=== PATIENT | female | born 1960 | race Caucasian/White ===

== ENCOUNTER 2016-11-10 14:34 | Emergency (ER) | payer BC, MEDICARE ==
[~2016-11-10] VITALS: Ht 170.2 cm; Wt 70.4 kg
[~2016-11-10 14:34] MED LIST: AMIT50TA3 PO; ASPI-557 PO; CETI-115 PO; CHOL200035 PO; CYCL-375 PO; FERR324T PO; FLUO20CA30 PO; FLUO40CA7 PO; FLUT15.88 NS; GABA-336 PO; LEVO75TA57 PO; METF500T4 PO; METO50TA5 PO; MULT-806 PO; OMEP40CA30 PO; PHEN-742 PO; POTA-12 PO; PRAM0.5T12 PO; SIMV20TA6 PO; SUMA100T18 PO; TOPI100T27 PO; TRAZ-173 PO
[2016-11-10 14:35] VITALS: Ht 170.2 cm; Wt 70.4 kg
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
--- OUTSIDE RECORDS SUMMARY | 2016-11-10 14:37 | XMS REPORT | Continuity of Care Document ---
Author Author [facility] Organization [facility] Address Unknown Phone Unavailable Support Name Relationship Address Phone PATRICIO KENNEDY MD Caregiver [address] [place] [id number] BLAISE VILLALTA MD Caregiver [address] [place] [address] [place] [id number] HUDSON HUTCHINS Next Of Kin [address] [place] [id number] Insurance Providers Payer Name Policy Number Subscriber Name Relationship [employer] Ppo/Open Choice [id number] DannyAlonzo Spouse Advance Directives Directive Response Recorded Date/Time Advanced Directives Type None 12/26/13 9:29pm Ordered Resuscitation Status Full Code 12/27/13 11:32am Problems Medical Problems Problem Onset Date Status Pyelonephritis Unknown Active UTI (urinary tract infection) Unknown Active CAP (community acquired pneumonia) Unknown Active History of DVT of lower extremity Unknown Active Hx of migraine with aura Unknown Active History of PSVT (paroxysmal supraventricular tachycardia) Unknown Active GERD (gastroesophageal reflux disease) Unknown Active Dyslipidemia Unknown Active Chronic low back pain Unknown Active Neurogenic bladder Unknown Active Obesity (BMI 30.0-34.9) Unknown Active Shock liver Unknown Active Acute kidney injury Unknown Resolved Sepsis Unknown Active Hypothyroidism Unknown Active Depression Unknown Active Nausea & vomiting Unknown Active Painful total knee replacement 02/11/2014 Active Cellulitis Unknown Active Cellulitis Unknown Active Bandemia Unknown Active UTI (urinary tract infection) Unknown Active Surgical Problems Problem Onset Date Recorded Date/Time Status S/P knee replacement Unknown 02/08/2014 5:46pm Active Medications Medication Dose Route Sig Days/Qty Instructions Order Date Discontinued Date Status [Kenalog Cream] 06/04/08 07/19/11 Discontinued Alprazolam 0.25 Mg PO THREE TIMES A DAY 09/01/08 12/31/11 Discontinued Aspirin 325 Mg PO DAILY 09/01/08 01/08/12 Discontinued Celecoxib 400 Mg PO DAILY 09/01/08 07/19/11 Discontinued Calcium Citrate/Vitamin D3 1 Tab PO THREE TIMES A DAY 06/04/0807/19 Discontinued Rosuvastatin Calcium 10 Mg PO DAILY 06/04/08 07/19/11 Discontinued [estrogen pellets] 50 Mg ID every 6 month 06/04/08 11/26/11 Discontinued Triamcinolone Acetonide 0.1 G TP .1% bid 06/04/08 07/19/11 Discontinued Levothyroxine Sodium 25 Mcg PO DAILY 09/01/08 07/19/11 Discontinued Escitalopram Oxalate 10 Mg PO DAILY 06/04/08 06/04/08 Discontinued Multivitamins 1 Tab PO DAILY 06/04/08 02/28/12 Discontinued Levothyroxine Sodium 25 Mcg PO DAILY 06/04/08 06/04/08 Discontinued Escitalopram Oxalate 10 Mg PO DAILY 09/01/08 07/19/11 Discontinued Fish Oil/Hammond-3 Fatty Acids 2 Cap PO TWICE A DAY 06/04/08 01/08/12 Discontinued Topiramate 100 Mg PO BID PRN 06/04/08 Active Amitriptyline Hcl 3 Tab PO BEDTIME 09/05/08 12/31/11 Discontinued Verapamil Hcl 0.5 Tab PO TWICE A DAY 09/05/08 12/31/11 Discontinued Indomethacin 1 Cap PO THREE TIMES A DAY 09/05/08 07/19/11 Discontinued Hydrocodone Bit/Acetaminophen 1 Tab PO EVERY 4 HOURS PRN 09/05/08 Discontinued Gabapentin 1 Tab PO THREE TIMES A DAY 09/05/08 07/19/11 Discontinued Omeprazole 1 Cap PO TWICE A DAY 09/05/08 07/19/11 Discontinued Levothyroxine Sodium 50 Mcg PO DAILY 07/19/11 02/28/12 Discontinued Fluticasone Propionate 16 Gm NS DAILY 07/19/11 11/26/11 Discontinued Propranolol Hcl 120 Mg PO BEDTIME 07/19/11 02/28/12 Discontinued Triamterene/Hydrochlorothiazid 1 Udtab PO DAILY 07/19/11 02/28/12 Discontinued Metformin Hcl 500 Mg PO TWICE A DAY 07/19/11 02/28/12 Discontinued Pravastatin Sodium 20 Mg PO BEDTIME 07/19/11 11/26/11 Discontinued Fluoxetine Hcl 60 Mg PO DAILY 07/19/11 12/22/12 Discontinued Oxycodone Hcl/Acetaminophen 1 Tab PO PRN 12/31/11 02/28/12 Discontinued [elavil] 10 Mg PO BEDTIME 12/31/11 02/28/12 Discontinued Pravastatin Sodium 20 Mg PO BEDTIME 12/31/11 09/09/12 Discontinued Fluoride Ion/Multivitamins 1 Mg PO 12/31/11 02/28/12 Discontinued Fish Oil/Hammond-3 Fatty Acids 2 Cap PO TWICE A DAY 01/08/12 02/28/12 Discontinued Levothyroxine Sodium 75 Mcg PO DAILY 02/28/12 Active Folic Acid/Mv,Fe,Other Min 1 Each PO DAILY 02/28/12 12/22/12 Discontinued Cholecalciferol (Vitamin D3) 2,000 Unit PO DAILY 02/28/12 Active Docusate Sodium 100 Mg PO DAILY 02/28/12 09/09/12 Discontinued Verapamil Hcl 120 Mg PO TWICE A DAY 09/09/12 12/22/12 Discontinued Cyclobenzaprine Hcl 20 Mg PO BEDTIME 09/09/12 11/27/13 Discontinued Butalb/Acetaminophen/Caffeine 1 Tab PO NEEDED 11/06/12 12/22/12 Discontinued Fluticasone Propionate 1 [place] NS NEEDED 11/06/12 Active Pramipexole Di-Hcl 0.5 Mg PO BEDTIME 11/06/12 Active Multivitamins 1 Tab PO DAILY 12/22/12 Active Fluoxetine Hcl 60 Mg PO DAILY 12/22/12 Active Warfarin Sodium 5 Mg PO DAILY 11/19/13 10/24/14 Discontinued Omeprazole 40 Mg PO BEFORE BREAKFAST 11/19/13 Active Cyclobenzaprine Hcl 10 Mg PO DAILY 11/27/13 02/08/14 Discontinued Fluconazole 100 Mg PO DAILY 5 Qty 02/03/14 02/08/14 Discontinued Nitrofurantoin/Nitrofuran Mac 100 Mg PO DAILY 90 Qty 02/05/14 Discontinued Spironolactone 25 Mg PO DAILY 02/08/14 10/24/14 Discontinued Sennosides/Docusate Sodium 1 Tab PO TWICE A DAY 02/08/14 Active Furosemide 40 Mg PO TWICE A DAY 02/08/14 Active Metoprolol Tartrate 25 Mg PO TWICE A DAY 2 Qty 02/08/14 10/24/14 Discontinued Polyethylene Glycol 3350 17 Gm PO NEEDED 02/08/14 Active Magnesium Hydroxide Unknown Dose PO DAILY 02/08/14 10/24/14 Discontinued Potassium Chloride 20 Meq PO THREE TIMES A DAY 02/08/14 Active Sumatriptan Succ/Naproxen Sod 1 Each PO NEEDED PRN MIGRAINE HEADACHE 02/08/14 Active Docusate Sodium 100 Mg PO TWICE A DAY 60 Qty 02/11/14 10/24/14 Discontinued Oxycodone Hcl 10 Mg PO EVERY 12 HOURS 28 Qty 02/11/14 10/24/14 Discontinued Oxycodone Hcl 5-15 Mg PO Every 3 Hours PRN BREAKTHROUGH PAIN 60 Qty 10/2310/24/14 Discontinued Clindamycin HCl 1 Cap PO FOUR TIMES DAILY 7 Days TAKE WITH A FULL GLASS OF WATER TO AVOID ESOPHAGEAL 08/06/14 10/24/14 Discontinued Tramadol HCl 50 Mg PO Every 6 Hours PRN PAIN 20 Qty 08/06/14 10/24/14 Discontinued Cranberry Extract 1 Tab PO DAILY 10/24/14 Active Metoprolol Tartrate 25 Mg PO BEDTIME 10/24/14 Active Metoprolol Tartrate 50 Mg PO GIVE WITH BREAKFAST Take 1 tablet, by mouth , one time a day (with breakfast). 10/24/14 Active Warfarin Sodium 3 Mg PO SAT/Sat10/24/14 Active Warfarin Sodium 6 Mg PO 5 TIMES A WEEK Take by mouth, 1 time a day (at 5 pm). 10/24/14 Active Melatonin/Pyridoxine HCl (B6) 1-2 Tab PO BEDTIME 10/24/14 Active Metformin HCl 1 Tab PO TWICE DAILY WITH MEALS Take one tablet, by mouth , twice daily with meals 10/24/14 Active Phentermine HCl 1 Tab PO DAILY 10/24/14 Active Simvastatin 20 Mg PO BEDTIME 10/24/14 Active Hydrocodone/Acetaminophen 1-2 Tab PO q4-6 30 Qty 10/24/14 Active Phenazopyridine HCl 200 Mg PO Every 8 Hours 3 Days Take 1 tab, by mouth, 3 times a day AFTER meals. 10/24/14 Active Amoxicillin/Potassium Clav 1 Tab PO TWICE A DAY 10 Days 10/24/14 Active Social History Social History Problem Response Recorded Date/Time Chewing Tobacco Status No 02/08/2014 9:12am Hx Substance Use No 10/24/2014 2:46pm Hx Alcohol Use No 10/24/2014 2:46pm Has the pt used tobacco in the last 12 months No 05/04/2014 10:59am Tobacco Usage none 02/08/2014 5:50pm Query Response Start Date Stop Date Smoking Status Never smoker Hospital Discharge Instructions No hospital discharge instructions. Plan of Care No plan of care. Functional Status Query Response Date Recorded Physical Hygiene Self October 24, 2014 2:46pm Disabilities Visual February 11, 2014 1:06pm Devices Used Glasses October 24, 2014 2:46pm Dressing Self October 24, 2014 2:46pm Ambulation Self February 11, 2014 1:06pm Diet Self October 24, 2014 2:46pm Mental Status Alert Oriented February 11, 2014 1:06pm Disabilities Visual February 11, 2014 1:06pm Devices Used Glasses October 24, 2014 2:46pm Physical Hygiene Self October 24, 2014 2:46pm Dressing Self October 24, 2014 2:46pm Ambulation Self February 11, 2014 1:06pm Diet Self October 24, 2014 2:46pm Allergies, Adverse Reactions, Alerts Allergen Type Severity Reaction Status Last Updated Sulfa (Sulfonamide Antibiotics) Allergy Unknown RASH Active 10/24/14 Acetaminophen Adverse Reaction Unknown NEEDS TO WATCH R/T ELEVATED LIVER ENZYMES Active 10/24/14 Prednisone Allergy Unknown MENTAL STATUS CHANGES Active 10/24/14 Ciprofloxacin Allergy Mild ITCH Active 10/24/14 PLASTIC TAPE Allergy Unknown RASH/SKIN TEARS Active 05/04/14 Immunizations Name Given Type Hx Influenza Vaccination Y 04/2014 Historical Hx Pneumococcal Vaccination Y JANUARY 2013 Historical Hx Tetanus, Diptheria, Pertussis Y 5 years Historical Hx Influenza Vaccination Y 04/2014 Historical Hx Tetanus, Diptheria, Pertussis Y 5 years Historical Vital Signs Acute Vital Signs Vital Response Date/Time Temperature (Fahrenheit) 98.6 deg F (96.8 - 99.1) Temperature (Calculated Celsius) 37.83731 degrees C (36.0 - 37.3) Pulse Rate (adult) 99 bpm (60 - 100) Respiratory Rate 18 breaths/min (10 - 20) O2 Sat by Pulse Oximetry 100 % (90 - 100) Blood Pressure 99/55 mm Hg Height 5 ft 7 in Weight 192 lb Body Mass Index 30.0 kg/m^2 Results Test Source Date Result Interp. Ref. Range Comments Alanine Aminotransferase (ALT/SGPT) October 24, 2014 3:45pm 44 U/L N 9-52 Albumin October 24, 2014 3:45pm 3.8 G/DL N 3.5-5.0 Albumin/Globulin Ratio October 24, 2014 3:45pm 1.5 RATIO N 1.1-2.2 Alkaline Phosphatase October 24, 2014 3:45pm 88 U/L N 38-126 Amylase Level October 24, 2014 3:45pm 65 U/L N 30-110 Anion Gap October 24, 2014 3:45pm 11 MEQ/L N 5-15 Aspartate Amino Transf (AST/SGOT) October 24, 2014 3:45pm 30 U/L N 14-36 BUN/Creatinine Ratio October 24, 2014 3:45pm 23 RATIO N 6-26 Band Neutrophils # October 24, 2014 3:45pm 1.7 T/MM3 - Band Neutrophils % October 24, 2014 3:45pm 19.0 % DH 0-6 Basophils # (Auto) May 05, 2014 6:25am 0.1 T/MM3 N 0-0.2 COMMENT NSC WILL CALL Basophils (%) (Auto) May 05, 2014 6:25am 1.4 % N 0-2 COMMENT NSC WILL CALL Blood Urea Nitrogen October 24, 2014 3:45pm 25.0 MG/DL H 7-17 C-Reactive Protein May 21, 2012 2:56pm < 5.0 MG/L 0-9 Calcium Level October 24, 2014 3:45pm 9.3 MG/DL N 8.4-10.2 Calculated Osmolality October 24, 2014 3:45pm 272 MOSM/KG N 261-280 Carbon Dioxide Level October 24, 2014 3:45pm 27 MEQ/L N 22-30 Chemistry Specimen Hemolysis October 24, 2014 3:45pm < 15 0-25 0-25: No Hemolysis.26-70: Slight Hemolysis - can falsely elevate K and Urine Protein. 71-285: Moderate Hemolysis - can falsely elevate K, Troponin I, CA 19-9, PTH, CSF GLucose, and Urine Protein, and can falsely decrease Phenytoin. 286-999: Gross Hemolysis - can falsely elevate K, Troponin I, CA 19-9, PTH, CSF Glucose, and Urine Protine, and can falsely decrease Phenytoin. Recommend specimen recollection. Chloride Level October 24, 2014 3:45pm 101 MEQ/L N 98-107 Cholesterol Level January 13, 2013 5:50am 263 MG/DL H 132-199 COMMENT run on this am hilda Cholesterol/HDL Ratio January 13, 2013 5:50am 4.3 RATIO H 0-4.0 COMMENT run on this am hilda Conjugated Bilirubin September 09, 2012 4:45pm 0.00 MG/DL N 0.00-0.30 Creatinine October 24, 2014 3:45pm 1.1 MG/DL N 0.7-1.2 D-Dimer September 09, 2012 4:44pm 574 NG/ML H 0-230 <224 NG/ML= PRESUMPTIVE NEGATIVE FOR PE OR DVT>224 NG/ML=ADDITIONAL EVALUATION FOR PE OR DVT RECOMMENDED Differential Total Cells Counted September 01, 2008 4:20pm 100 % - Eosinophils # (Auto) May 05, 2014 6:25am 0.2 T/MM3 N 0-0.5 COMMENT NSC WILL CALL Eosinophils (%) (Auto) May 05, 2014 6:25am 3.4 % N 0-4 COMMENT NSC WILL CALL Erythrocyte Sedimentation Rate September 09, 2012 4:44pm 2 MM/HR N 0-20 Are you ordering this test to rule out VTE Yes Free Thyroxine January 14, 2013 4:50am 0.99 NG/DL N 0.78-2.19 COMMENT blood in lab Globulin October 24, 2014 3:45pm 2.6 G/DL N 2.4-3.6 Glomerular Filtration Rate Calc October 24, 2014 3:45pm 52 - Glucometer November 06, 2012 8:33am 115 mg/dL H 65-110 Glucose Level October 24, 2014 3:45pm 93 MG/DL N 65-110 HDL Cholesterol Direct January 13, 2013 5:50am 61 MG/DL H 40-60 COMMENT run on this am hilda Hematocrit October 24, 2014 3:45pm 37.1 % N 36-46 Hemoglobin October 24, 2014 3:45pm 12.3 GM/DL N 12-16 Icterus Index October 24, 2014 3:45pm < 2 0-7 Immature Granulocyte # (Auto) May 05, 2014 6:25am 0.01 T/MM3 N 0.00-0.03 COMMENT NSC WILL CALL Immature Granulocyte % (Auto) May 05, 2014 6:25am 0.2 % N 0.0-0.5 COMMENT NSC WILL CALL Influenza Virus Types A,B Antigen September 01, 2008 4:20pm Negative - LDL Cholesterol, Calculated January 13, 2013 5:50am 176.2 H 66-159 COMMENT run on this am hilda Lab Scanned Report February 01, 2014 8:11pm LAB TEST FORM REQUEST [id number] - Lipase October 24, 2014 3:45pm 90 U/L N 23-300 Lymphocytes # (Auto) May 05, 2014 6:25am 2.3 T/MM3 N 1-4.8 COMMENT NSC WILL CALL Lymphocytes # (Manual) October 24, 2014 3:45pm 0.3 T/MM3 L 1-4.8 Lymphocytes % (Manual) October 24, 2014 3:45pm 3.0 % L 23-45 Lymphocytes (%) (Auto) May 05, 2014 6:25am 36.2 % N 23-45 COMMENT NSC WILL CALL MRSA Specimen Source February 01, 2014 1:27pm Nasal - Magnesium Level September 09, 2012 4:45pm 2.1 MG/DL N 1.6-2.3 Mean Corpuscular Hemoglobin October 24, 2014 3:45pm 30.0 UUG N 26-34 Mean Corpuscular Hemoglobin Concent October 24, 2014 3:45pm 33.2 GM/DL N 31-37 Mean Corpuscular Volume October 24, 2014 3:45pm 90.5 UM3 N 80-100 Mean Platelet Volume October 24, 2014 3:45pm 8.7 UM3 L 9.4-12.4 Methicillin-Resist S.aureus DNA PCR February 01, 2014 1:27pm Negative - Monocytes # (Auto) May 05, 2014 6:25am 0.5 T/MM3 N 0-0.8 COMMENT NSC WILL CALL Monocytes # (Manual) October 24, 2014 3:45pm 0.1 T/MM3 N 0-0.8 Monocytes % (Manual) October 24, 2014 3:45pm 1.0 % N 0-9.0 Monocytes (%) (Auto) May 05, 2014 6:25am 7.8 % N 0-9.0 COMMENT NSC WILL CALL Neutrophils # (Auto) May 05, 2014 6:25am 3.2 T/MM3 N 1.8-7.7 COMMENT NSC WILL CALL Neutrophils # (Manual) October 24, 2014 3:45pm 6.8 T/MM3 N 1.8-7.7 Neutrophils % (Manual) October 24, 2014 3:45pm 77.0 % H 33-66 Neutrophils (%) (Auto) May 05, 2014 6:25am 51.0 % N 33-66 COMMENT NSC WILL CALL Phosphorus Level February 04, 2012 5:10am 4.1 MG/DL N 2.5-4.5 Platelet Count October 24, 2014 3:45pm 234 T/MM3 N 130-400 Potassium Level October 24, 2014 3:45pm 4.3 MEQ/L N 3.6-5 Prealbumin December 26, 2013 8:01pm 31.3 MG/DL N 17.6-36.0 COMMENT may use blood in labCOMMENT may use blood in lab Procalcitonin December 26, 2013 10:20pm 0.09 NG/ML - PCT </=0.5 ng/mL - sepsis not likely;PCT >0.5 and </=2 ng/mL - sepsis possible; PCT >2 ng/mL - sepsis likely; PCT >/=10 ng/mL - systemic inflammatory response - sepsis or septic shock highly indicated. Prothromb Time International Ratio October 24, 2014 3:45pm 1.55 H 0.81- 1.09 THERAPUTIC RANGE=2.00-3.00 FOR ANTI-THROMBOSIS THERAPUTIC RANGE=2.50- 3.50 FOR IMPLANTED VALVE RDW Standard Deviation October 24, 2014 3:45pm 43.1 FL N 36.9-50.2 Red Blood Count October 24, 2014 3:45pm 4.10 M/MM3 N 4.00-5.20 Red Cell Morphology Comment October 24, 2014 3:45pm Normal - Sodium Level October 24, 2014 3:45pm 139 MEQ/L N 134-144 Tests Not Done September 02, 2008 4:25am Not done - Has specimen been collected/obtained? Y Thyroid Stimulating Hormone (TSH) December 26, 2013 8:01pm 4.13 MIU/L N 0.47- 4.68 COMMENT may use blood in labCOMMENT may use blood in lab Total Bilirubin October 24, 2014 3:45pm 0.60 MG/DL N 0.20-1.30 Total Protein October 24, 2014 3:45pm 6.4 G/DL N 6.3-8.2 Triglycerides Level January 13, 2013 5:50am 129 MG/DL N 35-135 COMMENT run on this am hilda Troponin I September 09, 2012 4:45pm < 0.012 ng/ml 0-0.12 Turbidity October 24, 2014 3:45pm < 20 0-20 Unconjugated Bilirubin September 09, 2012 4:45pm 0.00 MG/DL N 0.00-1.10 Urinalysis Comment February 09, 2014 5:45am Microscopic not ind. - COMMENT C&S IF WBC GREATER THAN 10 AND BACTERIA 1 PLUS OR MORE Has specimen been collected/obtained? Y Urine Bacteria October 24, 2014 3:15pm 1+ H - Has specimen been collected /obtained? Y Urine Bilirubin October 24, 2014 3:15pm Negative - Has specimen been collected/obtained? Y Urine Blood October 24, 2014 3:15pm Trace-intact H - Has specimen been collected/obtained? Y Urine Collection Type October 24, 2014 3:15pm Straight cath - Has specimen been collected/obtained? Y Urine Color October 24, 2014 3:15pm Yellow - Has specimen been collected/obtained? Y Urine Culture Indicated October 24, 2014 3:15pm Cult reflexed &setup - Has specimen been collected/obtained? Y Urine Eosinophils February 03, 2012 8:10pm Ref lab rpt scanned - --- 06/08 0754 ---EOSINU previously reported as: SEND OUT Urine Glucose (UA) October 24, 2014 3:15pm Negative - Has specimen been collected/obtained? Y Urine Ketones October 24, 2014 3:15pm Negative - Has specimen been collected/obtained? Y Urine Leukocyte Esterase October 24, 2014 3:15pm Trace H - Has specimen been collected/obtained? Y Urine Microscopic Not Indicated February 03, 2012 8:10pm Not indicated - Has specimen been collected/obtained? Y Urine Nitrite October 24, 2014 3:15pm Positive H - Has specimen been collected/obtained? Y Urine Protein October 24, 2014 3:15pm Negative - Has specimen been collected/obtained? Y Urine RBC October 24, 2014 3:15pm 1-3 /HPF - Has specimen been collected/obtained? Y Urine Specific [place] October 24, 2014 3:15pm 1.010 L - Has specimen been collected/obtained? Y Urine Squamous Epithelial Cells December 26, 2013 4:45pm 0-5 - Has specimen been collected/obtained? Y Urine Transitional Epithelial Cells September 09, 2012 5:15pm 5-10 /HPF - Has specimen been collected/obtained? Y Urine Turbidity October 24, 2014 3:15pm Clear - Has specimen been collected/obtained? Y Urine Urobilinogen October 24, 2014 3:15pm 0.2 EU/DL - Has specimen been collected/obtained? Y Urine WBC October 24, 2014 3:15pm 3-5 /HPF - Has specimen been collected/obtained? Y Urine pH October 24, 2014 3:15pm 7.0 - Has specimen been collected/ obtained? Y VLDL Cholesterol January 13, 2013 5:50am 25.8 MG/DL N 0-28 COMMENT run on this am hilda Valproic Acid (Depakene) Level February 03, 2012 7:49pm < 10.0 UG/ML L 50- 120 Venous Blood Lactate December 26, 2013 10:20pm 1.1 MMOL/L N 0.6-2.2 Vitamin B12 Level December 26, 2013 8:01pm 670 PG/ML N 239-931 COMMENT may use blood in labCOMMENT may use blood in lab White Blood Count October 24, 2014 3:45pm 8.8 T/MM3 N 4.5-11.0 Blood Culture Blood December 26, 2013 10:20pm NO GROWTH AFTER 5 DAYS Gram Stain Synovial Fluid-Right Knee January 09, 2012 1:45pm Gram Stain Sputum-Expectorated Sputum December 29, 2013 4:30am Gram Stain Knee, Intraoperative Site-Left January 13, 2013 7:55am Urine Culture Urine, Clean Catch-Midstream December 26, 2013 5:30pm Gram Stain Knee, Non-Surgical Site-Left February 27, 2013 10:00am Procedures Procedure Status Date Provider(s) THER/PROPH/DIAG INJ SC/IM completed 08/06/14 EMERGENCY DEPT VISIT completed 08/06/14 [id number]"INJECTION, CEFTRIAXONE SODIUM, PER 250 MG" completed 08/06/14 Encounters Encounter Location Date/Time Departed Emergency Room [facility] 10/24/14 2:11pm Departed Emergency Room [facility] 08/06/14 9:46am Recent Diagnosis
--- OUTSIDE RECORDS SUMMARY | 2016-11-10 14:38 | XMS REPORT | Continuity of Care Document ---
Author Author [facility] Organization [facility] Address Unknown Phone Unavailable Allergies Active Description Code Type Severity Reaction Onset Reported/Identified Relationship to Patient Clinical Status Yes No Known Drug Intolerances Drug Allergy Unknown N/A 04/06/2010 Yes No Known Intolerances Drug Allergy Unknown N/A 04/06/2010 Yes ciprofloxacin Drug Allergy Moderate TURN RED, ITCH 11/16/2013 Yes Sulfa (Sulfonamide Antibiotics) Drug Allergy Moderate TURN RED, ITCH 11/16/2013 Medications Problems Procedures Code Description Performed By Performed On 99.57 BOTULISM ANTITOXIN ADMIN Randy Mann MD 11/16/2013 Results Test Result Range CBC - 11/16/13 07:28 MEAN CELL HGB 30.2 pg 27.0-33.0 MEAN CELL HGB CONCENTRATION 32.0 g/dL 32.0-37.0 MEAN CELL VOLUME 94.4 fl 80.0-100.0 RED BLOOD CELL 4.14 m/cumm 4.00-6.00 RED CELL DISTRIBUTION WIDTH 13.4 % 11.0- 15.6 WHITE BLOOD CELL 7.4 k/cumm 5.0-10.0 HEMOGLOBIN 12.5 gm/dL 12.0-16.0 HEMATOCRIT 39.1 % 37.0-47.0 PLATELET COUNT 257 k/cumm 150-400 PROTHROMBIN TIME WITH INR - 11/16/13 07:28 INTERNATIONAL NORMAL RATIO 0.9 0.9-1.1 PROTHROMBIN TIME 9.9 sec 9.3-12.2 METABOLIC PANEL, BASIC - 11/16/13 07:28 POTASSIUM 4.9 mmol/L 3.5-5.3 EST GFR (MDRD) > 60 mL/min > 59 ANION GAP 11 mmol/L 5-15 EST CrCl (CG) > 60 mL/min > 59 GLUCOSE 82 mg/dL 70-99 CALCIUM 9.4 mg/dL 8.5-10.1 BLOOD UREA NITROGEN 19 mg/dL 7-20 CREATININE 0.8 mg/dL 0.6-1.0 SODIUM 142 mmol/L 135-148 CHLORIDE 107 mmol/L 98-110 CARBON DIOXIDE 24 mmol/L 21-32 Encounters ACCT No. Visit Date/Time Discharge Status Pt. Type Provider Facility Loc./Unit Complaint [id number] 11/16/2013 06:31:00 2013 11:30:00 DIS Outpatient Johnathan PLASCENCIA, [facility]
--- OUTSIDE RECORDS SUMMARY | 2016-11-10 14:38 | XMS REPORT | Continuity of Care Document ---
Author Author [facility] Organization [facility] Address Unknown Phone Unavailable Care Team Providers Care Investment Representative Name Role Phone PATRICIO KENNEDY MD Primary Care Physician [phone] Insurance Providers Payer Name Policy Number Subscriber Name Relationship Aetna Ppo/Open Choice [id number] RossiangelaAlonzo Spouse Advance Directives Directive Response Recorded Date/Time [...] Active Cellulitis Unknown Active Cellulitis Unknown Active Surgical Problems Problem Onset Date [...] Mg PO DAILY 09/01/08 07/19/11 Discontinued Fish Oil/[place]-3 Fatty Acids 2 Cap PO TWICE A [...] 1 Mg PO 12/31/11 02/28/12 Discontinued Fish Oil/[place]-3 Fatty Acids 2 Cap PO TWICE A [...] NEEDED 11/06/12 12/22/12 Discontinued Fluticasone Propionate 1 [place] NS NEEDED 11/06/12 Active Pramipexole Di-Hcl 0.5 Mg PO BEDTIME 11/06/12 Active Multivitamins 1 Tab PO DAILY 12/22/12 Active Fluoxetine Hcl 40 Mg PO DAILY 12/22/12 Active Warfarin Sodium 5 Mg PO DAILY 11/19/13 Active Omeprazole 40 Mg PO BEFORE BREAKFAST 11/19/13 Active Cyclobenzaprine Hcl 10 Mg PO DAILY 11/27/13 02/08/14 Discontinued Fluconazole 100 Mg PO DAILY 5 Qty 02/03/14 02/08/14 Discontinued Nitrofurantoin/Nitrofuran Mac 100 Mg PO DAILY 90 Qty 02/05/14 Active Spironolactone 25 Mg PO DAILY 02/08/14 Active Sennosides/Docusate Sodium 1 Tab PO TWICE A DAY 02/08/14 Active Furosemide 40 Mg PO TWICE A DAY 02/08/14 Active Metoprolol Tartrate 25 Mg PO TWICE A DAY 2 Qty 02/08/14 Active Polyethylene Glycol 3350 17 Gm PO TWICE A DAY 02/08/14 Active Magnesium Hydroxide Unknown Dose PO DAILY 02/08/14 Active Potassium Chloride 20 Meq PO DAILY 02/08/14 Active Sumatriptan Succ/Naproxen Sod 1 Each PO NEEDED PRN MIGRAINE HEADACHE 02/08/14 Active Docusate Sodium 100 Mg PO TWICE A DAY 60 Qty 02/11/14 Active Oxycodone Hcl 10 Mg PO EVERY 12 HOURS 28 Qty 02/11/14 Active Oxycodone Hcl 5-15 Mg PO Every 3 Hours PRN BREAKTHROUGH PAIN 60 Qty 10/23 Active Clindamycin HCl 1 Cap PO FOUR TIMES DAILY 7 Days TAKE WITH A FULL GLASS OF WATER TO AVOID ESOPHAGEAL 08/06/14 Active Tramadol HCl 50 Mg PO Every 6 Hours PRN PAIN 20 Qty 08/06/14 Active Social History Social History Problem Response Recorded Date/Time Chewing Tobacco Status No 02/08/2014 9:12am Hx Substance Use No 08/06/2014 11:52am Hx Alcohol Use No 08/06/2014 11:52am Has the pt used tobacco in the last 12 months No 05/04/2014 10:59am Tobacco Usage none 02/08/2014 5:50pm Query Response Start Date Stop Date Smoking Status Never smoker Hospital Discharge Instructions No hospital discharge instructions. Plan of Care No plan of care. Functional Status Query Response Date Recorded Physical Hygiene Self August 06, 2014 11:52am Disabilities Visual February 11, 2014 1:06pm Devices Used Glasses August 06, 2014 11:52am Dressing Self August 06, 2014 11:52am Ambulation Self February 11, 2014 1:06pm Diet Self August 06, 2014 11:52am Mental Status Alert Oriented February 11, 2014 1:06pm Disabilities Visual February 11, 2014 1:06pm Devices Used Glasses August 06, 2014 11:52am Physical Hygiene Self August 06, 2014 11:52am Dressing Self August 06, 2014 11:52am Ambulation Self February 11, 2014 1:06pm Diet Self August 06, 2014 11:52am Allergies, Adverse Reactions, Alerts Allergen Type Severity Reaction Status Last Updated Sulfa (Sulfonamide Antibiotics) Allergy Unknown RASH Active 08/06/14 Acetaminophen Adverse Reaction Unknown NEEDS TO WATCH R/T ELEVATED LIVER ENZYMES Active 08/06/14 Prednisone Allergy Unknown MENTAL STATUS CHANGES Active 08/06/14 Ciprofloxacin Allergy Mild ITCH Active 08/06/14 PLASTIC TAPE Allergy Unknown RASH/SKIN TEARS Active 05/04/14 Immunizations Name Given Type Hx Influenza Vaccination Y 04/2014 Historical Hx Pneumococcal Vaccination Y JANUARY 2013 Historical Hx Tetanus, Diptheria, Pertussis Y 5 years Historical Hx Influenza Vaccination Y 04/2014 Historical Hx Tetanus, Diptheria, Pertussis Y 5 years Historical Vital Signs Acute Vital Signs Vital Response Date/Time Temperature (Fahrenheit) 97.4 deg F (96.8 - 99.1) Temperature (Calculated Celsius) 36.40633 degrees C (36.0 - 37.3) Pulse Rate (adult) 87 bpm (60 - 100) Respiratory Rate 20 breaths/min (10 - 20) O2 Sat by Pulse Oximetry 100 % (90 - 100) Oxygen Flow Rate 1.00 L/min Blood Pressure 109/71 mm Hg Height 5 ft 8 in Weight 203 lb Body Mass Index 30.0 kg/m^2 Results Test Source Date Result Interp. Ref. Range Comments Alanine Aminotransferase (ALT/SGPT) May 05, 2014 6:25am 77 U/L H 9 -52 Albumin May 05, 2014 6:25am 4.1 G/DL N 3.5-5.0 Albumin/Globulin Ratio May 05, 2014 6:25am 1.4 RATIO N 1.1-2.2 Alkaline Phosphatase May 05, 2014 6:25am 105 U/L N 38-126 Amylase Level February 03, 2012 7:49pm 66 U/L N 30-110 Anion Gap May 05, 2014 6:25am 13 MEQ/L N 5-15 Aspartate Amino Transf (AST/SGOT) May 05, 2014 6:25am 31 U/L N 14- 36 BUN/Creatinine Ratio May 05, 2014 6:25am 20 RATIO N 6-26 Band Neutrophils # September 01, 2008 4:20pm 0.4 T/MM3 - Band Neutrophils % September 01, 2008 4:20pm 3.0 % N 0-6 Basophils # (Auto) May 05, 2014 6:25am 0.1 T/MM3 N 0-0.2 COMMENT NSC WILL CALL Basophils (%) (Auto) May 05, 2014 6:25am 1.4 % N 0-2 COMMENT NSC WILL CALL Blood Urea Nitrogen May 05, 2014 6:25am 18.0 MG/DL H 7-17 C-Reactive Protein May 21, 2012 2:56pm < 5.0 MG/L 0-9 Calcium Level May 05, 2014 6:25am 9.8 MG/DL N 8.4-10.2 Calculated Osmolality May 05, 2014 6:25am 275 MOSM/KG N 261-280 Carbon Dioxide Level May 05, 2014 6:25am 24 MEQ/L N 22-30 Chloride Level May 05, 2014 6:25am 105 MEQ/L N 98-107 Cholesterol Level January 13, 2013 5:50am 263 MG/DL H 132-199 COMMENT run on this am hilda Cholesterol/HDL Ratio January 13, 2013 5:50am 4.3 RATIO H 0-4.0 COMMENT run on this am hilda Conjugated Bilirubin September 09, 2012 4:45pm 0.00 MG/DL N 0.00-0.30 Creatinine May 05, 2014 6:25am 0.9 MG/DL N 0.7-1.2 D-Dimer September 09, 2012 [...] N 0.78-2.19 COMMENT blood in lab Globulin May 05, 2014 6:25am 2.9 G/DL N 2.4-3.6 Glucose Level May 05, 2014 6:25am 93 MG/DL N 65-110 Hematocrit May 05, 2014 6:25am 39.3 % N 36-46 COMMENT NSC WILL CALL Hemoglobin May 05, 2014 6:25am 12.9 GM/DL N 12-16 COMMENT NSC WILL CALL Influenza Virus Types A,B Antigen September 01, 2008 4:20pm Negative - LDL Cholesterol, Calculated January 13, 2013 5:50am 176.2 H 66-159 COMMENT run on this am hilda Lipase December 26, 2013 8:01pm 41 U/L N 23-300 Lymphocytes # (Auto) May 05, 2014 6:25am 2.3 T/MM3 N 1-4.8 COMMENT NSC WILL CALL Lymphocytes # (Manual) September 02, 2008 4:55am 1.1 T/MM3 N 1-4.8 Lymphocytes % (Manual) September 02, 2008 4:55am 9.0 % L 23-45 Lymphocytes (%) (Auto) May 05, 2014 6:25am 36.2 % N 23-45 COMMENT NSC WILL CALL Magnesium Level September 09, 2012 4:45pm 2.1 MG/DL N 1.6-2.3 Mean Corpuscular Hemoglobin May 05, 2014 6:25am 30.1 UUG N 26-34 COMMENT NSC WILL CALL Mean Corpuscular Hemoglobin Concent May 05, 2014 6:25am 32.8 GM/DL N 31-37 COMMENT NSC WILL CALL Mean Corpuscular Volume May 05, 2014 6:25am 91.8 UM3 N 80-100 COMMENT NSC WILL CALL Mean Platelet Volume May 05, 2014 6:25am 8.6 UM3 L 9.4-12.4 COMMENT NSC WILL CALL Monocytes # (Auto) May 05, 2014 6:25am 0.5 T/MM3 N 0-0.8 COMMENT NSC WILL CALL Monocytes # (Manual) September 01, 2008 4:20pm 0.2 T/MM3 N 0-0.8 Monocytes % (Manual) September 01, 2008 4:20pm 2.0 % N 0-9.0 Monocytes (%) (Auto) May 05, 2014 6:25am 7.8 % N 0-9.0 COMMENT NSC WILL CALL Neutrophils # (Auto) May 05, 2014 6:25am 3.2 T/MM3 N 1.8-7.7 COMMENT NSC WILL CALL Neutrophils # (Manual) September 02, 2008 4:55am 11.4 T/MM3 H 1.8-7.7 Neutrophils % (Manual) September 02, 2008 4:55am 91.0 % H 33-66 Neutrophils (%) (Auto) May 05, 2014 6:25am 51.0 % N 33-66 COMMENT NSC WILL CALL Phosphorus Level February 04, 2012 5:10am 4.1 MG/DL N 2.5-4.5 Platelet Count May 05, 2014 6:25am 266 T/MM3 N 130-400 COMMENT NSC WILL CALL Potassium Level May 05, 2014 6:25am 3.8 MEQ/L N 3.6-5 Prealbumin December 26, 2013 8:01pm 31.3 MG/DL N 17.6-36.0 COMMENT may use blood in labCOMMENT may use blood in lab Prothromb Time International Ratio May 05, 2014 6:25am 0.95 N 0.81 -1.09 THERAPUTIC RANGE=2.00-3.00 FOR ANTI-THROMBOSIS THERAPUTIC RANGE=2.50- 3.50 FOR IMPLANTED VALVE RDW Standard Deviation May 05, 2014 6:25am 46.1 FL N 36.9-50.2 COMMENT NSC WILL CALL Red Blood Count May 05, 2014 6:25am 4.28 M/MM3 N 4.00-5.20 COMMENT NSC WILL CALL Sodium Level May 05, 2014 6:25am 142 MEQ/L N 134-144 Tests Not Done September 02, 2008 4:25am Not done - Has specimen been collected/obtained? Y Thyroid Stimulating Hormone (TSH) December 26, 2013 8:01pm 4.13 MIU/L N 0.47- 4.68 COMMENT may use blood in labCOMMENT may use blood in lab Total Bilirubin May 05, 2014 6:25am 0.60 MG/DL N 0.20-1.30 Total Protein May 05, 2014 6:25am 7.0 G/DL N 6.3-8.2 Triglycerides Level January 13, 2013 5:50am 129 MG/DL N 35-135 COMMENT run on this am hilda Troponin I September 09, 2012 4:45pm < 0.012 ng/ml 0-0.12 Unconjugated Bilirubin September 09, 2012 4:45pm 0.00 MG/DL N 0.00-1.10 Urine Bacteria December 26, 2013 4:45pm 2+ H - Has specimen been collected/ obtained? Y Urine Bilirubin February 09, 2014 5:45am Negative - COMMENT C&S IF WBC GREATER THAN 10 AND BACTERIA 1 PLUS OR MORE Has specimen been collected/obtained? Y Urine Blood February 09, 2014 5:45am Negative - COMMENT C&S IF WBC GREATER THAN 10 AND BACTERIA 1 PLUS OR MORE Has specimen been collected/obtained? Y Urine Collection Type February 09, 2014 5:45am Cleancatch-midstream - COMMENT C&S IF WBC GREATER THAN 10 AND BACTERIA 1 PLUS OR MORE Has specimen been collected/obtained? Y Urine Color February 09, 2014 5:45am Yellow - COMMENT C&S IF WBC GREATER THAN 10 AND BACTERIA 1 PLUS OR MORE Has specimen been collected/obtained? Y Urine Culture Indicated December 26, 2013 4:45pm Cult reflexed &setup - Has specimen been collected/obtained? Y Urine Eosinophils February 03, 2012 8:10pm Ref lab rpt scanned - --- 06/08 0754 ---EOSINU previously reported as: SEND OUT Urine Glucose (UA) February 09, 2014 5:45am Negative - COMMENT C&S IF WBC GREATER THAN 10 AND BACTERIA 1 PLUS OR MORE Has specimen been collected/obtained? Y Urine Ketones February 09, 2014 5:45am Negative - COMMENT C&S IF WBC GREATER THAN 10 AND BACTERIA 1 PLUS OR MORE Has specimen been collected/obtained? Y Urine Leukocyte Esterase February 09, 2014 5:45am Trace H - COMMENT C&S IF WBC GREATER THAN 10 AND BACTERIA 1 PLUS OR MORE Has specimen been collected/obtained? Y Urine Nitrite February 09, 2014 5:45am Negative - COMMENT C&S IF WBC GREATER THAN 10 AND BACTERIA 1 PLUS OR MORE Has specimen been collected/obtained? Y Urine Protein February 09, 2014 5:45am Negative - COMMENT C&S IF WBC GREATER THAN 10 AND BACTERIA 1 PLUS OR MORE Has specimen been collected/obtained? Y Urine RBC December 26, 2013 4:45pm 50-200 /HPF H - Has specimen been collected/obtained? Y Urine Specific [place] February 09, 2014 5:45am 1.025 - COMMENT C&S IF WBC GREATER THAN 10 AND BACTERIA 1 PLUS OR MORE Has specimen been collected/obtained? Y Urine Squamous Epithelial Cells December 26, 2013 4:45pm 0-5 - Has specimen been collected/obtained? Y Urine Transitional Epithelial Cells September 09, 2012 5:15pm 5-10 /HPF - Has specimen been collected/obtained? Y Urine Turbidity February 09, 2014 5:45am Clear - COMMENT C&S IF WBC GREATER THAN 10 AND BACTERIA 1 PLUS OR MORE Has specimen been collected/obtained? Y Urine Urobilinogen February 09, 2014 5:45am 0.2 EU/DL - COMMENT C&S IF WBC GREATER THAN 10 AND BACTERIA 1 PLUS OR MORE Has specimen been collected/obtained? Y Urine WBC December 26, 2013 4:45pm 10-20 /HPF H - Has specimen been collected/obtained? Y Urine pH February 09, 2014 5:45am 5.5 - COMMENT C&S IF WBC GREATER THAN 10 AND BACTERIA 1 PLUS OR MORE Has specimen been collected/obtained? Y VLDL Cholesterol January 13, 2013 5:50am 25.8 MG/DL N 0-28 COMMENT run on this am hilda Valproic Acid (Depakene) Level February 03, 2012 7:49pm < 10.0 UG/ML L 50- 120 Vitamin B12 Level December 26, 2013 8:01pm 670 PG/ML N 239-931 COMMENT may use blood in labCOMMENT may use blood in lab White Blood Count May 05, 2014 6:25am 6.3 T/MM3 N 4.5-11.0 COMMENT NSC WILL CALL Chemistry Specimen Hemolysis May 05, 2014 6:25am < 15 0-25 0-25 : No Hemolysis.26-70: Slight Hemolysis - can falsely elevate K and Urine Protein. 71-285: Moderate Hemolysis - can falsely elevate K, Troponin I, CA 19-9, PTH, CSF GLucose, and Urine Protein, and can falsely decrease Phenytoin. 286-999: Gross Hemolysis - can falsely elevate K, Troponin I, CA 19-9, PTH, CSF Glucose, and Urine Protine, and can falsely decrease Phenytoin. Recommend specimen recollection. Urinalysis Comment February 09, 2014 5:45am Microscopic not ind. - COMMENT C&S IF WBC GREATER THAN 10 AND BACTERIA 1 PLUS OR MORE Has specimen been collected/obtained? Y Glucometer November 06, 2012 8:33am 115 mg/dL H 65-110 Lab Scanned Report February 01, 2014 8:11pm LAB TEST FORM REQUEST [id number] - HDL Cholesterol Direct January 13, 2013 5:50am 61 MG/DL H 40-60 COMMENT run on this am hilda Methicillin-Resist S.aureus DNA PCR February 01, 2014 1:27pm Negative - Turbidity May 05, 2014 6:25am < 20 0-20 Glomerular Filtration Rate Calc May 05, 2014 6:25am 65 - Immature Granulocyte # (Auto) May 05, 2014 6:25am 0.01 T/MM3 N 0.00-0.03 COMMENT NSC WILL CALL Immature Granulocyte % (Auto) May 05, 2014 6:25am 0.2 % N 0.0-0.5 COMMENT NSC WILL CALL Venous Blood Lactate December 26, 2013 10:20pm 1.1 MMOL/L N 0.6-2.2 Procalcitonin December 26, 2013 10:20pm 0.09 NG/ML - PCT </=0.5 ng/mL - sepsis not likely;PCT >0.5 and </=2 ng/mL - sepsis possible; PCT >2 ng/mL - sepsis likely; PCT >/=10 ng/mL - systemic inflammatory response - sepsis or septic shock highly indicated. Icterus Index May 05, 2014 6:25am < 2 0-7 MRSA Specimen Source February 01, 2014 1:27pm Nasal - Urine Microscopic Not Indicated February 03, 2012 8:10pm Not indicated - Has specimen been collected/obtained? Y Blood Culture Blood December 26, 2013 10:20pm NO GROWTH AFTER 5 DAYS Gram Stain Synovial Fluid-Right Knee January 09, 2012 1:45pm Gram Stain Sputum-Expectorated Sputum December 29, 2013 4:30am Urine Culture Urine, Clean Catch-Midstream December 26, 2013 5:30pm Gram Stain Knee, Non-Surgical Site-Left February 27, 2013 10:00am Gram Stain Knee, Intraoperative Site-Left January 13, 2013 7:55am Procedures Procedure Status Date Provider(s) COMP SCREEN MAMMOGRAM ADD-ON completed 07/14/14 [id number]"SCREENING MAMMOGRAPHY, PRODUCING DIRECT DIGITAL IMAGE completed Encounters Encounter Location Date/Time Departed Emergency Room [facility] 08/06/14 9:46am Registered Clinic [facility] 07/14/14 10:55am Recent Diagnosis
--- OUTSIDE RECORDS SUMMARY | 2016-11-10 14:38 | XMS REPORT | Continuity of Care Document ---
Author Author [facility] Organization [facility] Address Unknown Phone Unavailable Care Team Providers Care Stopper Maker Helper Name Role Phone PATRICIO DARNELL MD Primary Care Physician [phone] Insurance Providers Payer Name Policy Number Subscriber Name Relationship [employer]et[employer] Hpk [id number] RossiangelaAlonzo Spouse Advance Directives Directive Response Recorded Date/Time Advanced Directives Type None 12/26/13 9:29pm Ordered Resuscitation Status Full Code 12/27/13 11:32am Resuscitation Documents on File No 05/04/14 10:58am Problems Medical Problems Problem Onset Date Status [...] Active Painful total knee replacement 02/11/2014 Active Surgical Problems Problem Onset Date Recorded [...] Mg PO DAILY 09/01/08 07/19/11 Discontinued Fish Oil/[place]-3 Fatty Acids 2 Cap PO TWICE A [...] 1 Mg PO 12/31/11 02/28/12 Discontinued Fish Oil/[place]-3 Fatty Acids 2 Cap PO TWICE A [...] NEEDED 11/06/12 12/22/12 Discontinued Fluticasone Propionate 1 [place] NS NEEDED 11/06/12 Active Pramipexole Di-Hcl 0.5 [...] PRN BREAKTHROUGH PAIN 60 Qty 10/23 Active Social History Social History Problem Response Recorded Date/Time Smoking Status Never smoker 02/08/2014 9:12am Chewing Tobacco Status No 02/08/2014 9:12am Hx Substance Use No 05/04/2014 10:59am Hx Alcohol Use No 05/04/2014 10:59am Has the pt used tobacco in the last 12 months No 05/04/2014 10:59am Query Response Start Date Stop Date Smoking Status Never smoker Hospital Discharge Instructions Instructions: Care Instructions: Reason for Hospitalization: EXCHANGE SPACER LEFT KNEE REVISION I was in the hospital because (patient own words): TO FIX MY LEFT KNEE Discharge Activity: Walk regularly. Try to walk a little farther each day. This will help prevent many of the complications that are possible after a total joint replacement. This would include things like pneumonia, blood clots and constipation. Follow Up Appointments: WITH ORTHO CLINIC ON 02-24-14 AT 0930 AM FOR STAPLE REMOVAL. [phone] OUTPATIENT PHYSICAL THERAPY ON 02-15-14, 9AM AT [facility] [phone] Patient Instructions: LABWORK ON MONDAYS AND THURSDAYS (BEFORE 10AM) AT DR DARNELL'S OFFICE [phone] Wound/Incision Care: Tegaderm 1.Clear dressing is to remain in place for 2 weeks. 2.Do not pick at it or scrub it while showering. 3.If the dressing begins to pull up, secure it with 4x4 gauze pad and tape. 4.You may shower; however, do not submerge yourself in water until the incision is completely healed. Mepilex 1.Dressing to remain in place until your follow up appointment. 2.If this dressing starts peeling up slightly, it may be reinforced, if it peels excessively, notify your surgeon's office. 3.You may shower with the dressing in place, but do not submerge in water 4.Do not allow water to seep under the dressing, if it should seep under, remove the dressing and notify your surgeon. Durable Medical Equipment: HAS WALKER Notify Physician If: Call your Surgeon if you have: 1.Chest pain, difficulty breathing, fever>100.5 degrees, chills, heart rate >100, confusion, or persistent nausea/vomitting. 2.Severe pain, swelling, redness, or warmth in either of your legs. 3.During office hours, call [phone] 4. After hours, please call [facility] at [phone], and have the lift slab operator page your Surgeon IN THE EVENT OF AN EMERGENCY, seek medical care at the nearest Emergency Room Condition at time of discharge: Good Care Plan Discharge Patient: Goal: Maximum functional status Patient Instructions: see patient instructions Plan of Care Discharge Date 02/11/14 1:45pm Instructions/Education Provided [facility] [place] Prescriptions See Medications Section Functional Status Query Response Date Recorded Physical Hygiene Self February 11, 2014 1:06pm Disabilities Visual February 11, 2014 1:06pm Ambulation Self February 11, 2014 1:06pm Mental Status Alert Oriented February 11, 2014 1:06pm Disabilities Visual February 11, 2014 1:06pm Physical Hygiene Self February 11, 2014 1:06pm Ambulation Self February 11, 2014 1:06pm Allergies, Adverse Reactions, Alerts Allergen Type Severity Reaction Status Last Updated Sulfa (Sulfonamide Antibiotics) Allergy Unknown RASH Active 12/26/13 Acetaminophen Adverse Reaction Unknown NEEDS TO WATCH R/T ELEVATED LIVER ENZYMES Active 02/05/14 Prednisone Allergy Unknown MENTAL STATUS CHANGES Active 02/05/14 Ciprofloxacin Allergy Mild ITCH Active 12/26/13 PLASTIC TAPE Allergy Unknown RASH/SKIN TEARS Active 05/04/14 Immunizations Name Given Type Hx Influenza Vaccination Y MAY 2013 Historical Hx Pneumococcal Vaccination Y JANUARY 2013 Historical Hx Tetanus, Diptheria, Pertussis Y UNKNOWN Historical Hx Influenza Vaccination Y MAY 2013 Historical Hx Tetanus, Diptheria, Pertussis Y UNKNOWN Historical Vital Signs Acute Vital Signs Vital Response Date/Time Temperature (Fahrenheit) 96.9 deg F (96.8 - 99.1) Temperature (Calculated Celsius) 36.93564 degrees C (36.0 - 37.3) Temperature Source Temporal Pulse Rate (adult) 63 bpm (60 - 100) Respiratory Rate 16 breaths/min (10 - 20) O2 Sat by Pulse Oximetry 96 % (90 - 100) Oxygen Delivery Method Room Air Blood Pressure 102/68 mm Hg Blood Pressure Source Automatic Cuff Height 5 ft 8 in Weight 199 lb Body Mass Index 30.0 kg/m^2 Results [...] 05, 2014 6:25am 24 MEQ/L N 22-30 Chemistry Specimen Hemolysis May 05, 2014 6:25am [...] decrease Phenytoin. Recommend specimen recollection. Chloride Level May 05, 2014 6:25am 105 [...] 05, 2014 6:25am 2.9 G/DL N 2.4-3.6 Glomerular Filtration Rate Calc May 05, 2014 6:25am 65 - Glucometer November 06, 2012 8:33am 115 mg/dL H 65-110 Glucose Level May 05, 2014 6:25am 93 MG/DL N 65-110 HDL Cholesterol Direct January 13, 2013 5:50am 61 MG/DL H 40-60 COMMENT run on this am hilda Hematocrit May 05, 2014 6:25am 39.3 % N 36-46 COMMENT NSC WILL CALL Hemoglobin May 05, 2014 6:25am 12.9 GM/DL N 12-16 COMMENT NSC WILL CALL Icterus Index May 05, 2014 6:25am < 2 0-7 Immature Granulocyte # (Auto) [...] 01, 2014 8:11pm LAB TEST FORM REQUEST [id number] - Lipase December 26, 2013 8:01pm 41 U/L [...] UM3 L 9.4-12.4 COMMENT NSC WILL CALL Methicillin-Resist S.aureus DNA PCR February 01, 2014 [...] shock highly indicated. Prothromb Time International Ratio May 05, 2014 [...] 2012 4:45pm < 0.012 ng/ml 0-0.12 Turbidity May 05, 2014 6:25am < 20 0-20 Unconjugated Bilirubin September 09, 2012 4:45pm 0.00 MG/DL N 0.00-1.10 Urinalysis Comment February 09, 2014 5:45am Microscopic not ind. - COMMENT C&S IF WBC GREATER THAN 10 AND BACTERIA 1 PLUS OR MORE Has specimen been collected/obtained? Y Urine Bacteria December 26, 2013 4:45pm 2+ [...] MORE Has specimen been collected/obtained? Y Urine Microscopic [...] Has specimen been collected/obtained? Y Urine Specific [place] February 09, 2014 5:45am 1.025 - COMMENT [...] 2014 6:25am 6.3 T/MM3 N 4.5-11.0 COMMENT [facility] WILL CALL Blood Culture Blood December 26, 2013 10:20pm NO GROWTH AFTER 5 DAYS Gram Stain Synovial Fluid-Right Knee January 09, 2012 1:45pm Gram Stain Sputum-Expectorated Sputum December 29, 2013 4:30am Gram Stain Knee, Intraoperative Site-Left January 13, 2013 7:55am Urine Culture Urine, Clean Catch-Midstream December 26, 2013 5:30pm Gram Stain Knee, Non-Surgical Site-Left February 27, 2013 10:00am Name: MEGAN MERCER Unit #: [id number] : [id number] Sex: F Loc / Svc: [facility] DOS: 03/30/14 Signed Report #: [id number] DIAGNOSTIC IMAGING REPORT TYPE OF EXAM: MRI SHOULDER RIGHT W/O CONTRAS Dictated By: VARGAS DARNELL MD INDICATION: ITS.REASON: [id number] PAIN MRI SHOULDER RIGHT W/O CONTRAS: Comparison: None Technique: Multiplanar multisequence MR imaging of the right shoulder was performed without contrast. Findings: The long head biceps tendon is intact and located within the bicipital groove. Subscapularis tendon is intact. Supraspinatus tendon is thickened with some areas of increased signal intensity distally. No discrete tear identified. The infraspinatus and teres minor tendons are intact. Moderate degenerative change in the acromioclavicular joint with inferiorly directed osteophytes impinging upon the supraspinatus tendon. No acute fracture. No subacromial subdeltoid bursal fluid or joint effusion. There appears to be a tear of the posterior superior labrum extending from 11 to 9 o'clock. Muscular bulk and signal intensity is normal. Impression: 1. Posterior superior glenoid labral tear. 2. Supraspinatus tendinopathy. 3. Acromioclavicular degenerative change. . Procedures Procedure Status Date Provider(s) REVISE/REPLACE KNEE JOINT completed 02/08/14 AZIZA ARDON MD Shoulder arthroscopy completed 05/05/14 VARGAS MONTALVO MD Encounters Encounter Location Date/Time Registered Clinic [facility] 03/30/14 7:32am Discharged Inpatient [facility] 02/08/14 8:24am
--- OUTSIDE RECORDS SUMMARY | 2016-11-10 14:38 | XMS REPORT | Continuity of Care Document ---
Author Author [facility] Organization [facility] Address Unknown Phone Unavailable Support Name Relationship Address Phone AZIZA ARDON MD Caregiver [address] [place] [address] Unavailable PATRICIO KENNEDY MD Caregiver [address] [facility] [address] [place] [address] Unavailable HUDSON HUTCHINS Next Of Kin [address] [place] [address] C Insurance Providers Guarantor Heena Delgado Address [address] [place] [address] Email @Whisk Payer Medicare Part A Only Policy Number [id number] Subscriber's Name Heena Delgado Relationship 18 Self Effective Date 14 Payer Blue Cross Other Policy Number [id number] Subscriber's Name RossiAlonzo miller Relationship 01 Spouse Group Number [id number] Effective Date 09 Advance Directives Directive Response Recorded Date/Time Advanced Directives Type None 12/26/13 9:29pm Ordered Resuscitation Status Full Code 12/27/13 11:32am Resuscitation Documents on File No 04/30/16 6:18am DPOA for Healthcare Only No 04/30/16 6:18am Living Will No 04/30/16 6:18am Problems Active Problems Medical Problem Onset Date Status Acute kidney injury Unknown Acute Ascites Unknown Acute Bandemia Unknown Acute CAD (coronary artery disease) Unknown Chronic CAP (community acquired pneumonia) Unknown Acute Cellulitis Unknown Acute Chronic anemia Unknown Chronic Chronic low back pain Unknown Chronic Depression Unknown Chronic Diabetes Unknown Chronic Dyslipidemia Unknown Chronic Fibromyalgia Unknown Chronic GERD (gastroesophageal reflux disease) Unknown Chronic History of DVT of lower extremity Unknown Chronic History of PSVT (paroxysmal supraventricular tachycardia) Unknown Chronic Hx of migraine with aura Unknown Acute Hypertension Unknown Chronic Hypothyroidism Unknown Chronic Neurogenic bladder Unknown Chronic Obesity (BMI 30.0-34.9) Unknown Chronic Painful total knee replacement 02/11/2014 Acute Pyelonephritis Unknown Acute Seizure disorder Unknown Chronic Sepsis Unknown Acute Shock liver Unknown Acute Transaminitis Unknown Acute UTI (urinary tract infection) Unknown Acute Urinary retention Unknown Acute Surgical Problem Onset Date Status S/P knee replacement Unknown Acute Past Problems Medical Problem Onset Date Cellulitis Unknown Nausea & vomiting Unknown UTI (urinary tract infection) Unknown Medications Current Home Medications Medication Dose Units Route Directions Days Qty Instructions Start Date Amitriptyline Hcl 50 Mg Tablet 0.5 Tab Oral Bedtime 11/06/15 Aspirin (Aspir 81) 81 Mg Tablet.dr 81 Mg Oral Every Other Day 07/26 Cetirizine Hcl (Zyrtec) 10 Mg Tablet 10 Mg Oral Daily 09/26/15 Cholecalciferol (Vitamin D3) (Vitamin D3) 2,000 Unit Capsule 2,000 Unit Oral Daily 02/28/12 Cyclobenzaprine Hcl 10 Mg Tablet 10 Mg Oral Three Times A Day as needed for Spasms 11/06/15 Ferrous Gluconate 324 Mg Tablet 1 Tab Oral Daily 04/25/16 Fluoxetine Hcl (Prozac) 20 Mg Capsule 20 Mg Oral Daily 06/08/15 Fluoxetine Hcl (Prozac) 40 Mg Capsule 40 Mg Oral Daily TAKE WITH 20 MG TO EQUAL 60MG DAILY 06/08/15 Fluticasone Propionate 15.8 Ml [place].susp 2 [place] Nasal Daily as needed for Prn Orders 09/26/15 Gabapentin 100 Mg Capsule 100 Mg Oral Three Times A Day 09/26/15 Levothyroxine Sodium (Synthroid) 75 Mcg Tablet 75 Mcg Oral Daily 02/28/12 Metformin Hcl 500 Mg Tablet 1,000 Mg Oral Twice A Day 06/08/15 Metoprolol Tartrate 50 Mg Tablet 25 Mg Oral Twice A Day 11/06/15 Multivitamins (Multivitamin) 1 Tab Tablet 1 Tab Oral Daily Omeprazole (Prilosec) 40 Mg Capsule.dr 40 Mg Oral Am 11/19/13 Phentermine Hcl 30 Mg Capsule 30 Mg Oral Am 09/26/15 Potassium Chloride 10 Meq Tab.er.prt 1 Tab Oral Twice A Day 01/26 Pramipexole Di-Hcl (Pramipexole Dihydrochloride) 0.5 Mg Tablet 0.5 Mg Oral Bedtime 11/06/15 Simvastatin 20 Mg Tablet 20 Mg Oral Bedtime 10/24/14 Sumatriptan Succinate 100 Mg Tablet 100 Mg Oral Daily as needed for Migraine 11/06/15 Topiramate (Topamax) 100 Mg Tablet 100 Mg Oral Twice A Day Trazodone Hcl 100 Mg Tablet 100 Mg Oral Bedtime 06/08/15 Past Home Medications Medication Directions Ordered Status Alprazolam 0.25 Mg Tablet, 0.25 Mg Oral Three Times A Day 09/01/08 Discontinued Amitriptyline Hcl 10 Mg Tablet, 3 Tab Oral Bedtime 09/05/08 Discontinued Aspirin 325 Mg Tablet, 325 Mg Oral Daily 09/01/08 Discontinued Butalb/Acetaminophen/Caffeine (Fioricet Tablet) 1 Tab Tablet, 1 Tab Oral As Needed 11/06/12 Discontinued Calcium Citrate/Vitamin D3 (Citracal + D Caplet) 1 Tab Tablet, 1 Tab Oral Three Times A Day 06/04/08 Discontinued Celecoxib (Celebrex) 400 Mg Capsule, 400 Mg Oral Daily 09/01/08 Discontinued Clindamycin Hcl 300 Mg Capsule, 1 Cap Oral Four Times Daily 08/06/14 Discontinued Cyclobenzaprine Hcl 10 Mg Tablet, 10 Mg Oral Daily 11/27/13 Discontinued Cyclobenzaprine Hcl (Flexeril) 5 Mg Tablet, 20 Mg Oral Bedtime 09/09/12 Discontinued Docusate Sodium (Colace) 100 Mg Capsule, 100 Mg Oral Twice A Day 02/11/14 Discontinued Docusate Sodium (Stool Softener) 100 Mg Capsule, 100 Mg Oral Daily 02/28/12 Discontinued Elavil , 10 Mg Oral Bedtime 12/31/11 Discontinued Escitalopram Oxalate (Lexapro) 10 Mg Tablet, 10 Mg Oral Daily 09/01/08 Discontinued Escitalopram Oxalate (Lexapro) 10 Mg Tablet, 10 Mg Oral Daily 06/04/08 Discontinued Estrogen Pellets , 50 Mg Intraderm Every 6 Month 06/04/08 Discontinued Fish Oil/[place]-3 Fatty Acids ([place] 3 Fish Oil 1,000 Mg Cap) 1 Cap Capsule, 2 Cap Oral Twice A Day 01/08/12 Discontinued Fish Oil/[place]-3 Fatty Acids ([place] 3 Fish Oil 1,000 Mg Cap) 1 Cap Capsule, 2 Cap Oral Twice A Day 06/04/08 Discontinued Fluconazole (Diflucan) 100 Mg Tablet, 100 Mg Oral Daily 02/03/14 Discontinued Fluoride Ion/Multivitamins (Multi Vitamins W/Fl 1 Mg Tab) 1 Mg Tab.chew, 1 Mg Oral 12/31/11 Discontinued Fluoxetine Hcl (Prozac) 40 Mg Capsule, 60 Mg Oral Daily 07/19/11 Discontinued Fluticasone Propionate (Flonase) 16 Gm [place].susp, 16 Gm Nasal Daily Discontinued Folic Acid/Mv,Fe,Other Min (One Daily For Women Tablet) 1 Each Tablet, 1 Each Oral Daily 02/28/12 Discontinued Gabapentin (Neurontin) 600 Mg Tablet, 1 Tab Oral Three Times A Day 09/05/08 Discontinued Hydrocodone Bit/Acetaminophen (Lortab 10-500 Tablet) 1 Tab Tablet, 1 Tab Oral Every 4 Hours Prn 09/05/08 Discontinued Indomethacin (Indocin) 25 Mg Capsule, 1 Cap Oral Three Times A Day 09/05/08 Discontinued Kenalog Cream , 06/04/08 Discontinued Levothyroxine Sodium 50 Mcg Tablet, 50 Mcg Oral Daily 07/19/11 Discontinued Levothyroxine Sodium 25 Mcg Tablet, 25 Mcg Oral Daily 09/01/08 Discontinued Levothyroxine Sodium 25 Mcg Tablet, 25 Mcg Oral Daily 06/04/08 Discontinued Magnesium Hydroxide (Milk Of Magnesia) 400 Mg/5 Ml Oral.susp, Unknown Dose Oral Daily 02/08/14 Discontinued Metformin Hcl 500 Mg Tablet, 500 Mg Oral Twice A Day 07/19/11 Discontinued Metoprolol Tartrate 25 Mg Tablet, 25 Mg Oral Twice A Day 02/08/14 Discontinued Multivitamins (Multiple Vitamin) 1 Tab Tablet, 1 Tab Oral Daily 06/04/08 Discontinued Nitrofurantoin/Nitrofuran Mac (Nitrofurantoin-Macro 100 Mg) 100 Mg Capsule, 100 Mg Oral Daily 02/05/14 Discontinued Omeprazole (Prilosec) 20 Mg Capsule., 1 Cap Oral Twice A Day 09/05/08 Discontinued Oxycodone Hcl (Oxycontin) 10 Mg Tablet, 10 Mg Oral Every 12 Hours 02/11/14 Discontinued Oxycodone Hcl (Roxicodone) 5 Mg Tablet, 5-15 Mg Oral Every 3 Hours as needed for Breakthrough Pain 02/11/14 Discontinued Oxycodone Hcl/Acetaminophen (Percocet 7.5/325 Mg Tablet) 1 Tab Tablet, 1 Tab Oral as needed 12/31/11 Discontinued Pravastatin Sodium (Pravachol) 20 Mg Tablet, 20 Mg Oral Bedtime 12/31/11 Discontinued Pravastatin Sodium (Pravachol) 20 Mg Tablet, 20 Mg Oral Bedtime 07/19/11 Discontinued Propranolol Hcl (Inderal La) 120 Mg Cap.sa.24h, 120 Mg Oral Bedtime 07/19/11 Discontinued Rosuvastatin Calcium (Crestor) 10 Mg Tablet, 10 Mg Oral Daily 06/04/08 Discontinued Spironolactone (Aldactone) 25 Mg Tablet, 25 Mg Oral Daily 02/08/14 Discontinued Tramadol Hcl 50 Mg Tablet, 50 Mg Oral Every 6 Hours as needed for Pain Discontinued Triamcinolone Acetonide (Kenalog 0.5%) 15 Gm Cr, 0.1 G Topical .1% Bid Discontinued Triamterene/Hydrochlorothiazid (Maxzide-25 Mg Tablet) 1 Udtab Tablet, 1 Udtab Oral Daily 07/19/11 Discontinued Verapamil Hcl (Calan Sr) 240 Mg Tablet.sa, 120 Mg Oral Twice A Day 09/09/12 Discontinued Verapamil Hcl (Calan Sr) 120 Mg Tablet.sa, 0.5 Tab Oral Twice A Day 09/05/08 Discontinued Warfarin Sodium (Coumadin) 5 Mg Tablet, 5 Mg Oral Daily 11/19/13 Discontinued Social History Social History Problem Response Recorded Date/Time Onset Date Status Reason for Hospitalization left knee scope 04/30/2016 9:31am Not Applicable Not Applicable Chewing Tobacco Status No 02/08/2014 9:12am Not Applicable Not Applicable Hx Substance Use No 04/30/2016 6:24am Not Applicable Not Applicable Hx Alcohol Use Y 1-2 X MO 04/30/2016 6:24am Not Applicable Not Applicable Has the pt used tobacco in the last 12 months No 04/30/2016 6:24am Not Applicable Not Applicable Tobacco Usage none 09/27/2015 12:00pm Not Applicable Not Applicable Query Response Start Date Stop Date Smoking Status Never smoker Hospital Discharge Instructions Instructions: Care Instructions: I was in the hospital because (patient own words): LEFT KNEE SCOPE Discharge Diet: regular Discharge Activity: Weight Bearing As tolerated Follow Up Appointments: With EBONIE Love on 05-04-16 at 10:00 Pending Lab / Results: Will be notified Expected Signs/Symptoms: May develop some brusing around knee down to your calf: that is normal. Notify Physician If: Fever over 101.5, excessive redness or swelling, uncontrolled pain, persistent nausea and vomitting lasting longer than 24 hours, redness, bleeding, or difficulty breathing. During Business Hours:: Please call the physician's office at After Business Hours:: Please call [phone] and have the compress machine operator page the physician. Pain Management/Treatment: May take Soma 1 tablet as needed for pain every 6 hours. Pain Scale Utilized to Educate Patient: 0-10 Pain Scale Wound/Incision Care: In 2 days remove dressing and place baindaids. May loosen the Jam Wrap if needed. Do not shower until your follow up appointment. Condition at time of discharge: Good Plan of Care Discharge Date 04/30/16 10:02am Instructions/Education Provided [facility] Knee Scope Prescriptions See Medication Section Functional Status Query Response Date Recorded Ability to complete ADL's impeded by No change April 30, 2016 6:18am Allergies, Adverse Reactions, Alerts Allergen Type Severity Reaction Status Last Updated Sulfa (Sulfonamide Antibiotics) Allergy Unknown RASH Active 11/06/15 Acetaminophen Adverse Reaction Unknown NEEDS TO WATCH R/T ELEVATED LIVER ENZYMES Active 11/06/15 Prednisone Allergy Unknown MENTAL STATUS CHANGES Active 11/06/15 Ciprofloxacin Allergy Mild ITCH Active 11/06/15 PLASTIC TAPE Allergy Unknown RASH/SKIN TEARS Active 05/04/14 Immunizations Query Response on File Recorded Date/Time Hx Influenza Vaccination Y -201404/30/16 6:24am Hx Pneumococcal Vaccination Y JANUARY 2013 04/30/16 6:24am Hx Tetanus, Diptheria, Pertussis Y 5 years 10/24/14 2:46pm Hx Influenza Vaccination Y -201404/30/16 6:24am Hx Tetanus, Diptheria, Pertussis Y 5 years 10/24/14 2:46pm DTaP Vaccine History 200711/06/15 2:50pm Influenza Vaccine Hx 05/201511/06/15 2:50pm Pneumococcal PCV13 Vaccine Hx 201311/06/15 2:48pm Tdap Vaccine Hx 200711/06/15 2:48pm Vital Signs Acute Vital Signs Vital Response Date/Time Temperature (Fahrenheit) 97.0 deg F (96.8 - 99.1) 04/30/2016 9:27am Temperature (Calculated Celsius) 36.15633 degrees C (36.0 - 37.3) 04/30/2016 9:27am Temperature Source Oral 04/30/2016 9:27am Pulse Rate (adult) 66 bpm (60 - 100) 04/30/2016 9:50am Respiratory Rate 18 breaths/min (10 - 20) 04/30/2016 9:50am O2 Sat by Pulse Oximetry 100 % (90 - 100) 04/30/2016 9:50am Oxygen Delivery Method Room Air 04/30/2016 9:50am Blood Pressure 115/76 mm Hg 04/30/2016 9:50am Blood Pressure Source Automatic Cuff 04/30/2016 9:50am Height (Feet) 5 feet 04/30/2016 6:09am Height (Inches) 8.00 inches 04/30/2016 6:09am Weight (Kilograms) 79.100 kg 04/30/2016 6:09am Body Mass Index (BMI) 26.5 04/30/2016 6:09am Results Laboratory Results Test Name Result Units Flags Reference Collection Date/Time Result Date/ Time Comments White Blood Count 7.0 T/MM3 4.5-11.0 04/30/2016 6:04/30/2016 6: 26am Red Blood Count 4.23 M/MM3 4.00-5.20 04/30/2016 6:04/30/2016 6: 26am Hemoglobin 12.8 GM/DL 12-16 04/30/2016 6:04/30/2016 6:26am Hematocrit 40.1 % 36-46 04/30/2016 6:04/30/2016 6:26am Mean Corpuscular Volume 94.8 UM3 80-100 04/30/2016 6:04/30/2016 6: 26am Mean Corpuscular Hemoglobin 30.3 UUG 26-34 04/30/2016 6:2015 6:26am Mean Corpuscular Hemoglobin Concent 31.9 GM/DL 31-37 04/30/2016 6:04/30/2016 6:26am RDW Standard Deviation 45.1 FL 36.9-50.2 04/30/2016 6:04/30/2016 6 :26am Platelet Count 245 T/MM3 130-400 04/30/2016 6:04/30/2016 6:26am Mean Platelet Volume 8.6 UM3 L 9.4-12.4 04/30/2016 6:04/30/2016 6: 26am Neutrophils (%) (Auto) 57.1 % 33-66 04/30/2016 6:04/30/2016 6: 26am Lymphocytes (%) (Auto) 30.9 % 23-45 04/30/2016 6:04/30/2016 6: 26am Monocytes (%) (Auto) 7.8 % 0-9.0 04/30/2016 6:04/30/2016 6:26am Eosinophils (%) (Auto) 3.4 % 0-4 04/30/2016 6:04/30/2016 6:26am Basophils (%) (Auto) 0.7 % 0-2 04/30/2016 6:04/30/2016 6:26am Immature Granulocyte % (Auto) 0.1 % 0.0-0.5 04/30/2016 6:2015 6:26am Absolute Neutrophils (auto) 4.0 T/MM3 1.8-7.7 04/30/2016 6:2015 6:26am Absolute Lymphocytes (auto) 2.2 T/MM3 1-4.8 04/30/2016 6:2015 6:26am Absolute Monocytes (auto) 0.6 T/MM3 0-0.8 04/30/2016 6:04/30/2016 6:26am Absolute Eosinophils (auto) 0.2 T/MM3 0-0.5 04/30/2016 6:2015 6:26am Absolute Basophils (auto) 0.1 T/MM3 0-0.2 04/30/2016 6:04/30/2016 6:26am Absolute Immature Granulocyte (auto 0.01 T/MM3 0.00-0.03 04/30/2016 6: 04/30/2016 6:26am Glucometer 100 mg/dL 65-110 04/30/2016 6:31am 04/30/2016 6:33am Procedures Procedure Status Date Provider(s) US EXAM ABDO BACK WALL COMP Completed 03/26/16 Knee arthroscopy Completed 04/30/16 AZIZA ARDON MD Encounters Encounter Location Arrival/Admit Date Discharge/Depart Date Attending Provider Departed [facility] 04/30/16 5:57am 04/30/16 10 :02AZIZA Abraham MD Registered Clinic [facility] 03/26/16 12:40pm [facility]
--- OUTSIDE RECORDS SUMMARY | 2016-11-10 14:38 | XMS REPORT | Continuity of Care Document ---
Author Author [facility] Organization [facility] Address Unknown Phone Unavailable Support Name Relationship Address Phone PATRICIO KENNEDY MD Caregiver [address] [place] [address] HUDSON HUTCHINS Next Of Kin [address] [place] [address] C Insurance Providers Payer Name Policy Number Subscriber Name Relationship [employer] Ppo/Open Choice [id number] Alonzo Mercer Spouse Medicare Part A Only [id number] Megan Mercer 18 Self Advance Directives Directive Response Recorded Date/Time Advanced Directives Type None 12/26/13 9:29pm Ordered Resuscitation Status Full Code 12/27/13 11:32am Resuscitation Documents on File No 11/11/14 1:35pm Problems Medical Problems Problem Onset Date Status [...] Active UTI (urinary tract infection) Unknown Active Bandemia Unknown Active Surgical Problems Problem Onset Date [...] Mg PO DAILY 09/01/08 07/19/11 Discontinued Fish Oil/[place]-3 Fatty Acids 2 Cap PO TWICE A [...] 1 Mg PO 12/31/11 02/28/12 Discontinued Fish Oil/[place]-3 Fatty Acids 2 Cap PO TWICE A [...] NEEDED 11/06/12 12/22/12 Discontinued Fluticasone Propionate 1 [place] NEEDED 11/06/12 Active Pramipexole Di-Hcl 0.5 [...] PO THREE TIMES A DAY 02/08/14 Active Docusate Sodium 100 Mg PO [...] Tab PO q4-6 30 Qty 10/24/14 Active Social History Social History Problem [...] 2:46pm Disabilities Visual February 11, 2014 1:06pm Ambulation Self February 11, 2014 1:06pm Mental Status Alert Oriented February 11, 2014 1:06pm Disabilities Visual February 11, 2014 1:06pm Physical Hygiene Self October 24, 2014 2:46pm Ambulation Self February 11, 2014 1:06pm Allergies, [...] Vital Signs Vital Response Date/Time Temperature (Fahrenheit) 97.1 deg F (96.8 - 99.1) Temperature (Calculated Celsius) 36.93422 degrees C (36.0 - 37.3) Temperature Source Temporal Pulse Rate (adult) 82 bpm (60 - 100) Respiratory Rate 16 breaths/min (10 - 20) O2 Sat by Pulse Oximetry 98 % (90 - 100) Oxygen Delivery Method Room Air Blood Pressure 103/65 mm Hg Blood Pressure Source Automatic Cuff Height 5 ft 8 in Weight 173 lb Body Mass Index 26.0 kg/m^2 Results Test Source Date Result Interp. [...] 01, 2014 8:11pm LAB TEST FORM REQUEST [id number] - Lipase October 24, 2014 3:45pm 90 [...] Has specimen been collected/obtained? Y Urine Specific Capulin October 24, 2014 3:15pm 1.010 L - [...] January 13, 2013 7:55am Urine Culture Urine, Straight Cath October 24, 2014 4:12pm Escherichia Coli, Esbl Pos Gram Stain Knee, Non-Surgical Site-Left February 27, 2013 10:00am Procedures Procedure Status Date Provider(s) ROUTINE VENIPUNCTURE completed 10/24/14 COMPREHEN METABOLIC PANEL completed 10/24/14 URINALYSIS AUTO W/SCOPE completed 10/24/14 ASSAY OF AMYLASE completed 10/24/14 ASSAY OF LIPASE completed 10/24/14 BL SMEAR W/DIFF WBC COUNT completed 10/24/14 COMPLETE CBC AUTOMATED completed 10/24/14 PROTHROMBIN TIME completed 10/24/14 URINE CULTURE/COLONY COUNT completed 10/24/14 HYDRATE IV INFUSION ADD-ON completed 10/24/14 THER/PROPH/DIAG IV INF INIT completed 10/24/14 TX/PRO/DX INJ NEW DRUG ADDON completed 10/24/14 TX/PRO/DX INJ NEW DRUG ADDON completed 10/24/14 TX/PRO/DX INJ NEW DRUG ADDON completed 10/24/14 EMERGENCY DEPT VISIT completed 10/24/14 [id number]"INJECTION, CEFTRIAXONE SODIUM, PER 250 MG" completed 10/24/14974587"INJECTION, HYDROMORPHONE, UP TO 4 MG" completed 10/24/14 [id number]"INJECTION, ONDANSETRON HYDROCHLORIDE, PER 1 MG" completed 10/24/14 [id number]"INFUSION, NORMAL SALINE SOLUTION , 1000 CC" completed 10/24/14 356383"INFUSION, NORMAL SALINE SOLUTION , 250 CC" completed 10/24/14 Colonoscopy completed 11/12/14 PATRICIO KENNEDY MD Encounters Encounter Location Date/Time Departed Emergency Room [facility] 10/24/14 2:11pm
--- OUTSIDE RECORDS SUMMARY | 2016-11-10 14:39 | XMS REPORT | Continuity of Care Document ---
Author Author [facility] Organization [facility] Address Unknown Phone Unavailable Care Team Providers Care Offset Second Press Operator Name Role Phone PATRICIO DARNELL MD Primary Care Physician [phone] Insurance Providers Payer Name Policy Number Subscriber Name Relationship [employer] [id number] DannyAlonzo Spouse Advance Directives Directive Response Recorded Date/Time Advanced Directives Type None 12/26/13 9:29pm Ordered Resuscitation Status Full Code 12/27/13 11:32am Chief Complaint and Reason for Visit Chief Complaint EXCHANGE SPACER LT KNEE Reason for Visit S/P knee replacement Painful total knee replacement Problems Medical Problems Problem Onset Date Status [...] Mg PO DAILY 09/01/08 07/19/11 Discontinued Fish Oil/[place]-3 Fatty Acids 2 Cap PO TWICE A [...] 1 Mg PO 12/31/11 02/28/12 Discontinued Fish Oil/[place]-3 Fatty Acids 2 Cap PO TWICE A [...] NEEDED 11/06/12 12/22/12 Discontinued Fluticasone Propionate 1 [place] NS NEEDED 11/06/12 Active Pramipexole Di-Hcl 0.5 [...] PRN BREAKTHROUGH PAIN 60 Qty 10/23 Active [Polyethylene Glycol 3350] 17 G PO DAILY 30 Qty 02/11/14 Active Social History Social History Problem Response Recorded Date/Time Smoking Status Never smoker 02/08/2014 9:12am Chewing Tobacco Status No 02/08/2014 9:12am Hx Substance Use No 02/08/2014 9:12am Hx Alcohol Use No 02/08/2014 9:12am Has the pt used tobacco in the last 12 months No 02/08/2014 9:12am Query Response Start Date Stop Date Smoking [...] 02-24-14 AT 0930 AM FOR STAPLE REMOVAL. [phone] OUTPATIENT PHYSICAL THERAPY ON 02-15-14, 9AM AT [facility] [phone] Patient Instructions: LABWORK ON MONDAYS AND THURSDAYS (BEFORE 10AM) AT DR DARNELL'S OFFICE [phone] Wound/Incision Care: Tegaderm 1.Clear dressing is to [...] of your legs. 3.During office hours, call [phone] 4. After hours, please call [facility] at [phone], and have the spray booth operator page your Surgeon IN THE EVENT OF AN EMERGENCY, seek medical care at the nearest Emergency Room Condition at time of discharge: Good Care Plan Discharge Patient: Goal: Maximum functional status Patient Instructions: see patient instructions Condition at time of discharge: Good Care Plan Discharge Patient: Goal: Understand discharge plan Patient Instructions: see patient instructions Goal: Understand discharge plan Patient Instructions: see patient instructions Plan of Care Discharge Date 02/11/14 1:45pm Disposition 01 DISCHARGED HOME, SELF-CARE Instructions/Education Provided [facility] Orthopedic Dismissal Prescriptions See Medications Section Functional Status Query Response Date Recorded Physical Hygiene Self February 11, 2014 1:06pm Disabilities Visual February 11, 2014 1:06pm Devices Used Glasses Walker February 11, 2014 1:06pm Dressing Self February 11, 2014 1:06pm Ambulation Self February 11, 2014 1:06pm Diet Self February 11, 2014 1:06pm Mental Status Alert Oriented February 11, 2014 1:06pm Disabilities Visual February 11, 2014 1:06pm Devices Used Glasses Walker February 11, 2014 1:06pm Physical Hygiene Self February 11, 2014 1:06pm Dressing Self February 11, 2014 1:06pm Ambulation Self February 11, 2014 1:06pm Diet Self February 11, 2014 1:06pm Allergies, Adverse Reactions, Alerts Allergen Type Severity Reaction Status Last Updated ciprofloxacin HCl Allergy Mild ITCH Active 12/26/13 Sulfa (Sulfonamide Antibiotics) Allergy Unknown RASH Active 12/26/13 Oxycodone Allergy Unknown Active 02/05/14 Acetaminophen Adverse Reaction Unknown NEEDS TO WATCH R/T ELEVATED LIVER ENZYMES Active 02/05/14 Prednisone Allergy Unknown MENTAL STATUS CHANGES Active 02/05/14 Ciprofloxacin Allergy Mild ITCH Active 12/26/13 NARCOTICS Allergy Unknown Active 02/05/14 PLASTIC TAPE Allergy Unknown RASH Active 11/26/13 Immunizations Name Given Type Hx Influenza Vaccination Y MAY 2013 Historical Hx Pneumococcal Vaccination Y JANUARY 2013 Historical Hx Tetanus, Diptheria, Pertussis Y UNKNOWN Historical Hx Influenza Vaccination Y MAY 2013 Historical Hx Tetanus, Diptheria, Pertussis Y UNKNOWN Historical Vital Signs Acute Vital Signs Vital Response Date/Time Temperature (Fahrenheit) 97.0 deg F (96.8 - 99.1) Temperature (Calculated Celsius) 36.32168 degrees C (36.0 - 37.3) Temperature Source Oral Pulse Rate (adult) 73 bpm (60 - 100) Respiratory Rate 16 breaths/min (10 - 20) Height 5 ft 8 in Weight 212 lb Body Mass Index 32.0 kg/m^2 Results Test Source Date Result Interp. Ref. Range Comments Alanine Aminotransferase (ALT/SGPT) February 08, 2014 9:50am 45 U/L N 9-52 Albumin February 08, 2014 9:50am 4.1 G/DL N 3.5-5.0 Albumin/Globulin Ratio February 08, 2014 9:50am 1.3 RATIO N 1.1-2.2 Alkaline Phosphatase February 08, 2014 9:50am 83 U/L N 38-126 Amylase Level February 03, 2012 7:49pm 66 U/L N 30-110 Anion Gap February 11, 2014 7:50am 10 MEQ/L N 5-15 Aspartate Amino Transf (AST/SGOT) February 08, 2014 9:50am 28 U/L N 14-36 BUN/Creatinine Ratio February 11, 2014 7:50am 14 RATIO N 6-26 Band Neutrophils # September 01, 2008 4:20pm 0.4 T/MM3 - Band Neutrophils % September 01, 2008 4:20pm 3.0 % N 0-6 Basophils # (Auto) February 08, 2014 9:50am 0.0 T/MM3 N 0-0.2 COMMENT SCU WILL CALL Basophils (%) (Auto) February 08, 2014 9:50am 0.7 % N 0-2 COMMENT SCU WILL CALL Blood Urea Nitrogen February 11, 2014 7:50am 10.0 MG/DL N 7-17 C-Reactive Protein May 21, 2012 2:56pm < 5.0 MG/L 0-9 Calcium Level February 11, 2014 7:50am 9.4 MG/DL N 8.4-10.2 Calculated Osmolality February 11, 2014 7:50am 267 MOSM/KG N 261-280 Carbon Dioxide Level February 11, 2014 7:50am 30 MEQ/L N 22-30 Chemistry Specimen Hemolysis February 11, 2014 7:50am < 15 0-25 0-25: No Hemolysis.26-70: Slight [...] decrease Phenytoin. Recommend specimen recollection. Chloride Level February 11, 2014 7:50am 100 MEQ/L N 98-107 Cholesterol Level January 13, 2013 5:50am 263 MG/DL H 132-199 COMMENT run on this am hilda Cholesterol/HDL Ratio January 13, 2013 5:50am 4.3 RATIO H 0-4.0 COMMENT run on this am hilda Conjugated Bilirubin September 09, 2012 4:45pm 0.00 MG/DL N 0.00-0.30 Creatinine February 11, 2014 7:50am 0.7 MG/DL N 0.7-1.2 D-Dimer September 09, 2012 4:44pm 574 NG/ML H 0-230 <224 NG/ML= PRESUMPTIVE NEGATIVE FOR PE OR DVT>224 NG/ML=ADDITIONAL EVALUATION FOR PE OR DVT RECOMMENDED Differential Total Cells Counted September 01, 2008 4:20pm 100 % - Eosinophils # (Auto) February 08, 2014 9:50am 0.2 T/MM3 N 0-0.5 COMMENT SCU WILL CALL Eosinophils (%) (Auto) February 08, 2014 9:50am 2.6 % N 0-4 COMMENT SCU WILL CALL Erythrocyte Sedimentation Rate September 09, 2012 4:44pm 2 MM/HR N 0-20 Are you ordering this test to rule out VTE Yes Free Thyroxine January 14, 2013 4:50am 0.99 NG/DL N 0.78-2.19 COMMENT blood in lab Globulin February 08, 2014 9:50am 3.1 G/DL N 2.4-3.6 Glomerular Filtration Rate Calc February 11, 2014 7:50am 88 - Glucometer November 06, 2012 8:33am 115 mg/dL H 65-110 Glucose Level February 11, 2014 7:50am 86 MG/DL N 65-110 HDL Cholesterol Direct January 13, 2013 5:50am 61 MG/DL H 40-60 COMMENT run on this am hilda Hematocrit February 11, 2014 7:50am 38.4 % N 36-46 Hemoglobin February 11, 2014 7:50am 12.2 GM/DL N 12-16 Icterus Index February 11, 2014 7:50am < 2 0-7 Immature Granulocyte # (Auto) February 08, 2014 9:50am 0.02 T/MM3 N 0.00- 0.03 COMMENT SCU WILL CALL Immature Granulocyte % (Auto) February 08, 2014 9:50am 0.3 % N 0.0-0.5 COMMENT SCU WILL CALL Influenza Virus Types A,B Antigen September 01, 2008 4:20pm Negative - LDL Cholesterol, Calculated January 13, 2013 5:50am 176.2 H 66-159 COMMENT run on this am hilda Lab Scanned Report February 01, 2014 8:11pm LAB TEST FORM REQUEST [id number] - Lipase December 26, 2013 8:01pm 41 U/L N 23-300 Lymphocytes # (Auto) February 08, 2014 9:50am 1.8 T/MM3 N 1-4.8 COMMENT SCU WILL CALL Lymphocytes # (Manual) September 02, 2008 4:55am 1.1 T/MM3 N 1-4.8 Lymphocytes % (Manual) September 02, 2008 4:55am 9.0 % L 23-45 Lymphocytes (%) (Auto) February 08, 2014 9:50am 30.4 % N 23-45 COMMENT SCU WILL CALL MRSA Specimen Source February 01, 2014 1:27pm Nasal - Magnesium Level September 09, 2012 4:45pm 2.1 MG/DL N 1.6-2.3 Mean Corpuscular Hemoglobin February 11, 2014 7:50am 29.7 UUG N 26-34 Mean Corpuscular Hemoglobin Concent February 11, 2014 7:50am 31.8 GM/DL N 31 -37 Mean Corpuscular Volume February 11, 2014 7:50am 93.4 UM3 N 80-100 Mean Platelet Volume February 11, 2014 7:50am 8.8 UM3 L 9.4-12.4 Methicillin-Resist S.aureus DNA PCR February 01, 2014 1:27pm Negative - Monocytes # (Auto) February 08, 2014 9:50am 0.4 T/MM3 N 0-0.8 COMMENT SCU WILL CALL Monocytes # (Manual) September 01, 2008 4:20pm 0.2 T/MM3 N 0-0.8 Monocytes % (Manual) September 01, 2008 4:20pm 2.0 % N 0-9.0 Monocytes (%) (Auto) February 08, 2014 9:50am 6.4 % N 0-9.0 COMMENT SCU WILL CALL Neutrophils # (Auto) February 08, 2014 9:50am 3.5 T/MM3 N 1.8-7.7 COMMENT SCU WILL CALL Neutrophils # (Manual) September 02, 2008 4:55am 11.4 T/MM3 H 1.8-7.7 Neutrophils % (Manual) September 02, 2008 4:55am 91.0 % H 33-66 Neutrophils (%) (Auto) February 08, 2014 9:50am 59.6 % N 33-66 COMMENT SCU WILL CALL Phosphorus Level February 04, 2012 5:10am 4.1 MG/DL N 2.5-4.5 Platelet Count February 11, 2014 7:50am 253 T/MM3 N 130-400 Potassium Level February 11, 2014 7:50am 3.4 MEQ/L L 3.6-5 Prealbumin December 26, 2013 8:01pm 31.3 [...] shock highly indicated. Prothromb Time International Ratio February 11, 2014 7:50am 2.06 H 0.81- 1.09 THERAPUTIC RANGE=2.00-3.00 FOR ANTI-THROMBOSIS THERAPUTIC RANGE=2.50- 3.50 FOR IMPLANTED VALVE RDW Standard Deviation February 11, 2014 7:50am 47.2 FL N 36.9-50.2 Red Blood Count February 11, 2014 7:50am 4.11 M/MM3 N 4.00-5.20 Sodium Level February 11, 2014 7:50am 140 MEQ/L N 134-144 Tests Not Done September 02, 2008 4:25am Not done - Has specimen been collected/obtained? Y Thyroid Stimulating Hormone (TSH) December 26, 2013 8:01pm 4.13 MIU/L N 0.47- 4.68 COMMENT may use blood in labCOMMENT may use blood in lab Total Bilirubin February 08, 2014 9:50am 0.70 MG/DL N 0.20-1.30 Total Protein February 08, 2014 9:50am 7.2 G/DL N 6.3-8.2 Triglycerides Level January 13, 2013 5:50am 129 MG/DL N 35-135 COMMENT run on this am hilda Troponin I September 09, 2012 4:45pm < 0.012 ng/ml 0-0.12 Turbidity February 11, 2014 7:50am < 20 0-20 Unconjugated Bilirubin September 09, [...] Has specimen been collected/obtained? Y Urine Specific Phil Campbell February 09, 2014 5:45am 1.025 - COMMENT [...] [id number] COMMENT may use blood in labCOMMENT december use blood in lab White Blood Count February 11, 2014 7:50am 7.0 T/MM3 N 4.5-11.0 Blood Culture Blood December 26, 2013 10:20pm NO GROWTH AFTER 5 DAYS Gram Stain Synovial Fluid-Right Knee January 09, 2012 1:45pm Gram Stain Sputum-Expectorated Sputum December 29, 2013 4:30am Gram Stain Knee, Intraoperative Site-Left January 13, 2013 7:55am Urine Culture Urine, Clean Catch-Midstream December 26, 2013 5:30pm Gram Stain Knee, Non-Surgical Site-Left February 27, 2013 10:00am Name: MEGAN DELGADO Unit #: [id number] : [id number] Sex: F DISCHARGE SUMMARY Admit Date: 12/27/13 Report #: [id number] General Date Date DATE: 01/01/14 TIME: 16:13 Attending Physician Matt Silver MD Admitting Physician Matt Silver MD Consulting Physician Admitting Diagnosis (1) Sepsis (2) Shock liver (3) CAP (community acquired pneumonia) (4) Acute kidney injury (5) UTI (urinary tract infection) (6) Nausea & vomiting (7) GERD (gastroesophageal reflux disease) (8) Chronic low back pain (9) Neurogenic bladder (10) Dyslipidemia (11) History of DVT of lower extremity (12) History of PSVT (paroxysmal supraventricular tachycardia) (13) Hx of migraine with aura (14) Obesity (BMI 30.0-34.9) (15) Depression (16) Hypothyroidism Discharge Diagnosis same Procedures none Laboratory Laboratory Laboratory Tests Test 01/01/14 04:39 White Blood Count 8.8 T/MM3 Red Blood Count 4.00 M/MM3 Hemoglobin 12.1 GM/DL Hematocrit 37.1 % Mean Corpuscular Volume 92.8 UM3 Mean Corpuscular Hemoglobin 30.3 UUG Mean Corpuscular Hemoglobin 32.6 GM/DL Concent RDW Standard Deviation 47.4 FL Platelet Count 270 T/MM3 Mean Platelet Volume 8.7 UM3 Immature Granulocyte % (Auto) 0.6 % Neutrophils (%) (Auto) 66.3 % Lymphocytes (%) (Auto) 23.0 % Monocytes (%) (Auto) 7.3 % Eosinophils (%) (Auto) 2.5 % Basophils (%) (Auto) 0.3 % Immature Granulocyte # (Auto) 0.05 T/MM3 Neutrophils # (Auto) 5.9 T/MM3 Lymphocytes # (Auto) 2.0 T/MM3 Monocytes # (Auto) 0.6 T/MM3 Eosinophils # (Auto) 0.2 T/MM3 Basophils # (Auto) 0.0 T/MM3 Prothromb Time International 2.88 Ratio Turbidity < 20 Sodium Level 142 MEQ/L Potassium Level 3.6 MEQ/L Chloride Level 107 MEQ/L Carbon Dioxide Level 24 MEQ/L Anion Gap 11 MEQ/L Blood Urea Nitrogen 9.0 MG/DL Creatinine 0.6 MG/DL Glomerular Filtration Rate 105 Calc BUN/Creatinine Ratio 15 RATIO Glucose Level 87 MG/DL Calculated Osmolality 271 MOSM/KG Calcium Level 9.1 MG/DL Icterus Index < 2 Chemistry Specimen Hemolysis < 15 History of Present Illness Megan Delgado is a 53 year old woman who woke up with right flank pain/right abd pain in the morning of 12/24. All day, she felt nauseated and didn't feel like eating or drinking anything. She denies diarrhea, constipation, but her stool looked very dark (not black or tarry). She complained of chills but no fever. She has had a constant headache, and feels weak, but not dizzy or lightheaded. She also has had a productive cough over the last couple of weeks, and has felt short of breath. She has complains of chronic sinus drainage, secondary to allergies. Patient has a history of neurogenic bladder, and self-caths after each void. A couple of days ago she noted burning on urination and frequency, hallmarks for UTI, but these symptoms resolved. Over the last week, she's noticed abdominal bloating and leg swelling. Her pain became so severe that she could barely ambulate. She presented to [facility] ED, where lab and imaging studies were obtained. Labs showed leukocytosis with WBC of 14.6. Chemistries were stable, except BUN was slightly high at 24 and liver enzymes were mildly elevated with AST of 56 and ALT of 61. UA showed 50- 200 RBC, WBC 10-20, and bact 2+. A CT scan of her abd/pelvis did not show acute abdominal pathology , but possible pneumonia in the left lower lobe. She was given IVF and started on Rocephin. Dr. Silver was notified, and the patient was placed into outpatient observation. Hospital Course Pt initially admitted observation, but later moved to inpt status as her course exceeded the scope of outpt services. She was given Rocephin initially for empiric abx coverage and later diflucan was added (yeast noted in sputum) and zithromax was added for better pulmonary coverage. IVF were given. PICC line was placed. Lab was followed and liver enzymes did trend down. Depakote was discontinued due to hepatotoxicity and topamax was decreased. Unfortunately pt had recurrence of her migraine RAMOS and topamax was later increased to her original dose. Imitrex was given as well. Pain and nausea were controlled with PRN medications and diet was slowly advanced. Pt did continue to improve during her stay, and the day of discharge she was still having some trouble with RAMOS but felt that she could manage at home. She was discharged home with instructions to f/u with her PCP in 1-2 weeks. Should her symptoms persist she could contact Dr Darnell through the office or return to the ED for emergent evaluation Problems: DVT Prophylaxis: SCD'S GI Prophylaxis: Protonix Code Status Full Code Home Meds Active Scripts Fluconazole (Diflucan)100 Mg [id number] Mg PO DAILY #5 TAB Prov:MARICARMEN PABLO DO 02/03/14 Azithromycin (Zithromax)250 Mg Xczttw122 Mg PO DAILY #3 TAB Prov:MARICARMEN PABLO DO 02/03/14 Reported Medications Cyclobenzaprine Hcl 10 Mg Ncmgwa79 Mg PO 11/27/13 Oxycodone Hcl/Acetaminophen (Percocet 10-325 Mg Tablet)1 Tab Tablet1 Tab PO BID PRN 11/19/13 Omeprazole (Prilosec)40 Mg Capsule.dr40 Mg PO ACB 11/19/13 Pregabalin (Lyrica)75 Mg [place]66 Mg PO HS 11/19/13 Warfarin Sodium (Coumadin)5 Mg Tablet5 Mg PO DAILY 11/19/13 Fluoxetine Hcl (Prozac)40 Mg Ejfckxx83 Mg PO DAILY 12/22/12 Multivitamins (Multivitamin)1 Tab Tablet1 Tab PO DAILY 12/22/12 Pramipexole Di-Hcl (Mirapex)0.5 Mg Tablet0.5 Mg PO HS 11/06/12 Fluticasone Propionate (Flonase)16 Gm [place].susp1 [place] NS PRN 11/06/12 Cholecalciferol (Vitamin D3) (Vitamin D3)2,000 Unit Capsule2,000 Unit PO DAILY 02/28/12 Levothyroxine Sodium (Synthroid)75 Mcg [place]26 Mcg PO DAILY 02/28/12 Divalproex Sodium (Depakote)250 Mg Tablet.dr250 Mg PO BID 07/19/11 Topiramate (Topamax)100 Mg Xssrqr483 Mg PO BID PRN 06/04/08 Discharge Disposition stable MARICARMEN PABLO DO January 01, 2014 16:14 Procedures Procedure Status Date Provider(s) REPAIR OF HAMMERTOE completed 11/27/13 ANIVAL PINA DPTeetee Total knee revision completed 02/08/14 AZIZA ARDON MD Encounters Encounter Location Date/Time Discharged Inpatient [facility] 02/08/14 8:24am Registered Clinic [facility] 02/01/14 12:59pm Registered Clinic [facility] 01/21/14 7:39am Discharged Inpatient [facility] 12/27/13 11:32am Recent Diagnosis Painful total knee replacement
--- NOTE | 2016-11-10 14:45 | NUR ---
DR PALACIOS WITH PT
--- NOTE | 2016-11-10 14:57 | NUR ---
PHARMACY IN WITH PT
--- NOTE | 2016-11-10 14:58 | ERPDOC ---
Departure Disposition Decision Date: Nov 10, 2016 Disposition Decision Time: 16:34 Disposition: 01 DISCHARGED HOME, SELF-CARE Impression Impression Impression: Primary Impression: Laceration, eyelid Additional Impressions: Laceration of upper lip with complication Contusion of head Severity: Moderate Condition: Improved Seen By: Physician only Referrals: PATRICIO DARNELL MD (Family) Patient Instructions: Facial Laceration (ED) Problems/Meds/Labs Reviewed?: Yes Medications reviewed and manag: Yes Additional Instructions: See your primary care provider in the next 5 days to have sutures removed from lip. Follow up care ordered?: Yes Mental Status: Alert, Oriented Scripts Ondansetron (Zofran Odt) 4 Mg Tab.rapdis 4 MG PO Q6HR for NAUSEA, #30 TAB Oral disintegrating tablet Prov: AZIZA PALACIOS MD 11/10/16 Hydrocodone/Acetaminophen (Branch 5-325 Tablet) 5-325 Tablet 1 TAB PO QID Y for PAIN, #10 Prov: AZIZA PALACIOS MD 11/10/16 HPI - Skin General General Chief Complaint: Laceration Stated Complaint: LACERATION TO FACE Time Seen by Provider: 14:50 HPI - Skin General Initial Comments 56-year-old female with contusion to side of head. Patient was walking through her garage and tripped she fell on the floor, was unable to get her hands out in time and struck the cement with the side of her head. She has pain overlying the left eye, skin tears on left eyelid and a tear of the upper lip on the left side. She does not think she lost consciousness, but she has a severe headache and was initially confused after the injury. No fever no chills. She is due for a steroid injection in her neck on Saturday, she has had 2 previous cervical fusions. Allergies: Coded Allergies: ciprofloxacin (Verified Allergy, Mild, ITCH, 11/10/16) Sulfa (Sulfonamide Antibiotics) (Verified Allergy, Unknown, RASH, 11/10/16) prednisone (Verified Allergy, Unknown, MENTAL STATUS CHANGES, 11/10/16) "MAKES ME WANT TO KILL PEOPLE" acetaminophen (Verified Adverse Reaction, Unknown, NEEDS TO WATCH R/T ELEVATED LIVER ENZYMES, 11/10/16) PER PT Uncoded Allergies: PLASTIC TAPE (Allergy, Unknown, RASH/SKIN TEARS, 05/04/14) Past History Patient Surgical History Tonsillectomy Hear cath no stents about 2003 Hysterectomy and appy 1990 C-spine fusion 1989 Lumbar surgery 1986 Removal of coccyx 1999 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 ( [facility] [place]) Colonoscopy - 11-12-2014 normal, - Dr. Darnell Right shoulder, [facility] [place] Past Medical History Metabolic: hypercholesterolemia, hypertension, hypothyroidism Cardiac: PSVT GI: ulcers Female: pyelonephritis Neurological: headaches, migraines Musculoskeletal: back pain Hematologic: DVT Psychological: depression Surgical History General: appendix, back, gallbladder, neck, tonsils Cardiac: cardiac cath Reproductive/: hysterectomy Joint: knee Family History Family PMH: FOUND: cancer, diabetes, hypertension Vaccines Hx Influenza Vaccination: Yes () Hx Pneumococcal Vaccination: Yes (JANUARY 2013) Hx Tetanus, Diptheria, Pertuss: Yes (5 years) Social History Substance Use Type: does not use Sexuality: male partner Record Review Pertinent history updated: Yes Review of Systems Eyes Lids/Accessories: swelling Musculoskeletal General: see HPI All other Systems All Other Systems: Reviewed and Negative Physical Exam General General Nourishment: well nourished, well developed, appears stated age Distress Description Patient is holding ice to her head, obvious pain from fall Vitals and Pain First Documented Vital Signs Date Time Temp Pulse Resp B/P Pulse Ox O2 Delivery O2 Flow Rate FiO2 11/10/16 14:35 90 20 137/89 99 Room Air Weight: Kilograms: 70.400 Height (feet): 5 Height (inches): 7.00 Triage Pain Scale: Normal Exams: Eyes: Pupils are PERRLA w/ EOMI, No scleral icterus, irritation, or foreign bodies noted Chest/Resp: Clear all mock, with good airflow, and symmetry bilaterally CV: Regular rate and rhythm, without murmur or gallop, Pulses 2+ all extremities, capillary refill, <2 seconds all ext., no pedal edema noted Neurologic: Patient is alert, and oriented, cranial nerves, motor/sensory/ cerebellar, exams w/o gross deficits, to observation Psychiatric: Patient exhibits, appropriate attention, emotion and affect ENMT (brief) Comments Patient has contusion to left lateral orbit, swelling over left eyelid, small skin tear along the surface of the eyelid, upper lip with laceration as well. Differential Diagnoses Considering: Other (contusion face, orbit fracture, lid laceration, tear to lip.) Progress Results/Orders Orders Procedure Category Date Status Time Cbc W/Auto LAB 11/10/16 Complete Diff-Reflex Manual 15:01 Cmp - Comprehensive LAB 11/10/16 Complete Metabolic 15:01 Ua, Dip Wreflex LAB 11/10/16 Logged [employer] Worker 15:01 Ct Head W/O Contrast CT 11/10/16 Logged 15:01 Iv Lock (Ed Only) EDM 11/10/16 Transmitted 15:01 Ondansetron Inj PHA 11/10/16 Complete (Zofran) 15:15 Hydromorphone PHA 11/10/16 Complete (Dilaudid) 15:15 Lidocaine 1% / Epi PHA 11/10/16 Complete 1:100,000 (Xylocaine 16:15 Lab Results Laboratory Tests Test 11/10/16 15:26 White Blood Count 8.6T/MM3 Red Blood Count 4.23M/MM3 Hemoglobin 12.8GM/DL Hematocrit 39.6% Mean Corpuscular Volume 93.6UM3 Mean Corpuscular Hemoglobin 30.3UUG Mean Corpuscular Hemoglobin Concent 32.3GM/DL RDW Standard Deviation 43.8FL Platelet Count 265T/MM3 Mean Platelet Volume 8.4UM3 Immature Granulocyte % (Auto) 0.2% Neutrophils (%) (Auto) 66.7% Lymphocytes (%) (Auto) 23.7% Monocytes (%) (Auto) 6.4% Eosinophils (%) (Auto) 2.2% Basophils (%) (Auto) 0.8% Absolute Immature Granulocyte (auto 0.02T/MM3 Absolute Neutrophils (auto) 5.7T/MM3 Absolute Lymphocytes (auto) 2.0T/MM3 Absolute Monocytes (auto) 0.6T/MM3 Absolute Eosinophils (auto) 0.2T/MM3 Absolute Basophils (auto) 0.1T/MM3 Turbidity < 20 Sodium Level 145MEQ/L Potassium Level 4.0MEQ/L Chloride Level 104MEQ/L Carbon Dioxide Level 30MEQ/L Anion Gap 11MEQ/L Blood Urea Nitrogen 26.0MG/DL Creatinine 1.1MG/DL Glomerular Filtration Rate Calc 51 BUN/Creatinine Ratio 24RATIO Glucose Level 83MG/DL Calculated Osmolality 283MOSM/KG Calcium Level 9.4MG/DL Total Bilirubin 0.40MG/DL Icterus Index < 2 Aspartate Amino Transf (AST/SGOT) 28U/L Alanine Aminotransferase (ALT/SGPT) 34U/L Alkaline Phosphatase 140U/L Total Protein 7.0G/DL Albumin 4.0G/DL Globulin 3.0G/DL Albumin/Globulin Ratio 1.3RATIO Chemistry Specimen Hemolysis < 15 Medications Current ED Medications Ondansetron HCl (Zofran) 4 mg O ONCE IV Last administered on 11/10/16 15:31; Start 11/10/16 at 15:15; Stop 11/10/16 at 15:16; Status DC Hydromorphone HCl (Dilaudid) 0.5 mg O ONCE IV Last administered on 11/10/16 15 :33; Start 11/10/16 at 15:15; Stop 11/10/16 at 15:16; Status DC Lidocaine/ Epinephrine (Xylocaine 1%/ Epi 1:100,000) 20 ml O ONCE SQ Last administered on 11/10/16 16:31; Start 11/10/16 at 16:15; Stop 11/10/16 at 16:16; Status DC Progress Progress CT of head is negative, no orbital fracture, no bleed in the brain. 1.5 cm laceration on left upper eyelid is cleaned, dried and closed with Dermabond. Excellent hemostasis and skin approximation is noted. Laceration on left upper lip is also cleaned and dried, anesthetized with 1% lidocaine with epinephrine, using 1 cc total. Ethilon nonplastic sized, 5-0 suture was then used to close using interrupted technique. 4 sutures placed in total, excellent hemostasis and skin approximation noted. Instructions given for wound care including seeing primary care provider in the next 4-5 days to have sutures removed from lip. Dermabond on eyelid will fall off on its own patient was given Branch 5 mg # 10 tablets 1 tablet 4 times a day when necessary headache from the fall. AZIZA PALACIOS MD Nov 10, 2016 14:58
[2016-11-10] MEDS ORDERED: AMIT25TA9 PO (14:59)
[2016-11-10] MEDS ORDERED: CALC600T20 PO (15:02)
[2016-11-10] MEDS ORDERED: DICL100G5 TOP (15:06)
[2016-11-10] MEDS ORDERED: LACT1CAP80 PO (15:07)
[2016-11-10] MEDS ORDERED: ONDANSETRON 4mg/2ml INJECTION IV ONE (15:15)
[2016-11-10] MEDS ORDERED: HYDROMORPHONE 2mg/ml INJECTION IV ONE (15:15)
--- OUTSIDE RECORDS SUMMARY | 2016-11-10 15:34 | XMS REPORT | Continuity of Care Document ---
Author Author [facility] Organization [facility] Address Unknown Phone Unavailable Care Team Providers Care Sorting And Folding Supervisor Name Role Phone Justice Darnell Primary Care Physician [phone] Source Comments Some departments are not documenting in the electronic medical record. If you do not see the information that you expected, contact Release of Information in the Health Information Management department at [phone] for further assistance in locating additional records.[facility] Active Allergies and Adverse Reactions Allergen Noted [...] Taken Blood Pressure 130/85 10/12/2015 4:04 PM CONSTRUCTION MGR Pulse 90 10/12/2015 4:04 PM CONSTRUCTION MGR Temperature 36.4 C (97.5 F) 04/26/2015 10:30 AM CDT Respiratory Rate - - Height 0.9 m (2' 11.43") 10/12/2015 4:04 PM CONSTRUCTION MGR Weight 80.74 kg (178 lb) 10/12/2015 4:04 PM CONSTRUCTION MGR Body Mass Index 99.68 10/12/2015 4:04 PM CONSTRUCTION MGR Oxygen Saturation 98% 04/26/2015 10:30 AM CDT Plan of Care Health Maintenance Due Date Last Done Comments Hepatitis C Screening 1960 Physical (Comprehensive) 1967 Exam Pertussis Vaccine 1971 Tetanus Vaccine 1977 Cervical Cancer Screening 1981 Breast Cancer Screening 2000 Colorectal Cancer 2010 Screening Influenza Vaccine 04/12/2017 Results from Last 3 Months Not on file
--- OUTSIDE RECORDS SUMMARY | 2016-11-10 15:34 | XMS REPORT | Continuity of Care Document ---
Author Author [facility] Organization [facility] Address Unknown Phone Unavailable Support Name Relationship Address Phone PATRICIO KENNEDY MD Caregiver [address] [place] [phone] BLAISE VILLALTA MD Caregiver [address] [place] [address] [place] [phone] HUDSON HUTCHINS Next Of Kin [address] [place] [id number] C Insurance Providers Payer Name Policy Number Subscriber Name Relationship Aetna Ppo/Open Choice [id number] DannyAlonzo Spouse Advance Directives Directive Response Recorded [...] Mg PO DAILY 09/01/08 07/19/11 Discontinued Fish Oil/[place]-3 Fatty Acids 2 Cap PO TWICE A [...] 1 Mg PO 12/31/11 02/28/12 Discontinued Fish Oil/[place]-3 Fatty Acids 2 Cap PO TWICE A [...] NEEDED 11/06/12 12/22/12 Discontinued Fluticasone Propionate 1 [place] NS NEEDED 11/06/12 Active Pramipexole Di-Hcl 0.5 [...] F (96.8 - 99.1) Temperature (Calculated Celsius) 37.94804 degrees C (36.0 - 37.3) Pulse Rate [...] 01, 2014 8:11pm LAB TEST FORM REQUEST [id number] - Lipase October 24, 2014 3:45pm 90 [...] N 35-135 COMMENT run on this am hilad Troponin I September 09, 2012 4:45pm < [...] Has specimen been collected/obtained? Y Urine Specific [place] October 24, 2014 3:15pm 1.010 L - [...] completed 08/06/14 EMERGENCY DEPT VISIT completed 08/06/14 [id number]"INJECTION, CEFTRIAXONE SODIUM, PER 250 MG" completed 08/06/14 Encounters Encounter Location Date/Time Departed Emergency Room [facility] 10/24/14 2:11pm Departed Emergency Room [facility] 08/06/14 9:46am Recent Diagnosis
--- OUTSIDE RECORDS SUMMARY | 2016-11-10 15:34 | XMS REPORT | Continuity of Care Document ---
Author Author [facility] Organization [facility] Address Unknown Phone Unavailable Allergies [...] Status Pt. Type Provider Facility Loc./Unit Complaint [id number] 11/16/2013 06:31:00 2013 11:30:00 DIS Outpatient Johnathan PLASCENCIA, [facility]
--- OUTSIDE RECORDS SUMMARY | 2016-11-10 15:35 | XMS REPORT | Continuity of Care Document ---
Author Author [facility] Organization [facility] Address Unknown Phone Unavailable Support Name Relationship Address Phone PATRICIO KENNEDY MD Caregiver [address] [place] [phone] HUDSON HUTCHINS Next Of Kin [address] [place] [address] C Insurance Providers Payer Name Policy Number Subscriber Name Relationship Aetna Ppo/Open Choice [id number] Alonzo Mercer Spouse Medicare Part A Only [id number] Megan Mercer 18 Self Advance Directives Directive [...] Mg PO DAILY 09/01/08 07/19/11 Discontinued Fish Oil/[place]-3 Fatty Acids 2 Cap PO TWICE A [...] 1 Mg PO 12/31/11 02/28/12 Discontinued Fish Oil/[place]-3 Fatty Acids 2 Cap PO TWICE A [...] NEEDED 11/06/12 12/22/12 Discontinued Fluticasone Propionate 1 [place] NS NEEDED 11/06/12 Active Pramipexole Di-Hcl 0.5 [...] F (96.8 - 99.1) Temperature (Calculated Celsius) 36.81597 degrees C (36.0 - 37.3) Temperature Source [...] 01, 2014 8:11pm LAB TEST FORM REQUEST [id number] - Lipase October 24, 2014 3:45pm 90 [...] Has specimen been collected/obtained? Y Urine Specific [place] October 24, 2014 3:15pm 1.010 L - [...] completed 10/24/14 EMERGENCY DEPT VISIT completed 10/24/14 [id number]"INJECTION, CEFTRIAXONE SODIUM, PER 250 MG" completed 10/24/14280482"INJECTION, HYDROMORPHONE, UP TO 4 MG" completed 10/24/14 367223"INJECTION, ONDANSETRON HYDROCHLORIDE, PER 1 MG" completed 10/24/14 435753"INFUSION, NORMAL SALINE SOLUTION , 1000 CC" completed 10/24/14 144661"INFUSION, NORMAL SALINE SOLUTION , 250 CC" completed 10/24/14 Colonoscopy completed 11/12/14 PATRICIO KENNEDY MD Encounters Encounter Location Date/Time Departed Emergency Room [facility] 10/24/14 2:11pm
--- OUTSIDE RECORDS SUMMARY | 2016-11-10 15:35 | XMS REPORT | Continuity of Care Document ---
Author Author [facility] Organization [facility] Address Unknown Phone Unavailable Care Team Providers Care Greensman Name Role Phone PATRICIO KENNEDY MD Primary Care Physician [phone] Insurance Providers Payer Name Policy Number Subscriber Name Relationship Aetna Ppo/Open Choice [id number] RossiangelaAlonzo Spouse Advance Directives Directive Response Recorded [...] Mg PO DAILY 09/01/08 07/19/11 Discontinued Fish Oil/[place]-3 Fatty Acids 2 Cap PO TWICE A [...] 1 Mg PO 12/31/11 02/28/12 Discontinued Fish Oil/[place]-3 Fatty Acids 2 Cap PO TWICE A [...] NEEDED 11/06/12 12/22/12 Discontinued Fluticasone Propionate 1 [place] NS NEEDED 11/06/12 Active Pramipexole Di-Hcl 0.5 [...] F (96.8 - 99.1) Temperature (Calculated Celsius) 36.51894 degrees C (36.0 - 37.3) Pulse Rate [...] Has specimen been collected/obtained? Y Urine Specific [place] February 09, 2014 5:45am 1.025 - COMMENT [...] 01, 2014 8:11pm LAB TEST FORM REQUEST [id number] - HDL Cholesterol Direct January 13, 2013 [...] Provider(s) COMP SCREEN MAMMOGRAM ADD-ON completed 07/14/14 [id number]"SCREENING MAMMOGRAPHY, PRODUCING DIRECT DIGITAL IMAGE completed Encounters Encounter Location Date/Time Departed Emergency Room [facility] 08/06/14 9:46am Registered Clinic [facility] 07/14/14 10:55am Recent Diagnosis
--- OUTSIDE RECORDS SUMMARY | 2016-11-10 15:35 | XMS REPORT | Continuity of Care Document ---
Author Author LIVE Organization LIVE Address Unknown Phone Unavailable Care Team Providers Care Car Restorer Name Role Phone PATRICIO DARNELL MD Primary Care Physician [phone] Insurance Providers Payer Name Policy Number Subscriber Name Relationship Aetna Hpk [id number] RossiangelaAlonzo Spouse Advance Directives Directive Response Recorded [...] Mg PO DAILY 09/01/08 07/19/11 Discontinued Fish Oil/[place]-3 Fatty Acids 2 Cap PO TWICE A [...] 1 Mg PO 12/31/11 02/28/12 Discontinued Fish Oil/[place]-3 Fatty Acids 2 Cap PO TWICE A [...] NEEDED 11/06/12 12/22/12 Discontinued Fluticasone Propionate 1 [place] NS NEEDED 11/06/12 Active Pramipexole Di-Hcl 0.5 [...] 02-24-14 AT 0930 AM FOR STAPLE REMOVAL. [phone] OUTPATIENT PHYSICAL THERAPY ON 02-15-14, 9AM AT [facility] [phone] Patient Instructions: LABWORK ON MONDAYS AND THURSDAYS (BEFORE 10AM) AT DR DARNELL'S OFFICE [phone] Wound/Incision Care: Tegaderm 1.Clear dressing is to [...] of your legs. 3.During office hours, call [phone] 4. After hours, please call at [phone], and have the double needle operator page your Surgeon IN THE EVENT OF AN EMERGENCY, seek medical care at the nearest Emergency Room Condition at time of discharge: Good Care Plan Discharge Patient: Goal: Maximum functional status Patient Instructions: see patient instructions Plan of Care Discharge Date 02/11/14 1:45pm Instructions/Education Provided [facility] Orthopedic Dismissal Prescriptions See Medications Section Functional [...] F (96.8 - 99.1) Temperature (Calculated Celsius) 36.44014 degrees C (36.0 - 37.3) Temperature Source [...] 01, 2014 8:11pm LAB TEST FORM REQUEST [id number] - Lipase December 26, 2013 8:01pm 41 [...] Has specimen been collected/obtained? Y Urine Specific [place] February 09, 2014 5:45am 1.025 - COMMENT [...] 2014 6:25am 6.3 T/MM3 N 4.5-11.0 COMMENT [facility] [place] Blood Culture Blood December 26, 2013 10:20pm NO GROWTH AFTER 5 DAYS Gram Stain Synovial Fluid-Right Knee January 09, 2012 1:45pm Gram Stain Sputum-Expectorated Sputum December 29, 2013 4:30am Gram Stain Knee, Intraoperative Site-Left January 13, 2013 7:55am Urine Culture Urine, Clean Catch-Midstream December 26, 2013 5:30pm Gram Stain Knee, Non-Surgical Site-Left February 27, 2013 10:00am Name: MEGAN MERCER Unit #: [id number] : [id number] Sex: F Loc / Svc: [facility] DOS: 03/30/14 Signed Report #: [id number] DIAGNOSTIC IMAGING REPORT TYPE OF EXAM: MRI [...] MD Encounters Encounter Location Date/Time Registered Clinic [facility] 03/30/14 7:32am Discharged Inpatient [facility] 02/08/14 8:24am
--- OUTSIDE RECORDS SUMMARY | 2016-11-10 15:36 | XMS REPORT | Continuity of Care Document ---
Author Author [facility] Organization [facility] Address Unknown Phone Unavailable Care Team Providers Care Dashboard Developer Name Role Phone PATRICIO DARNELL MD Primary Care Physician [phone] Insurance Providers Payer Name Policy Number Subscriber Name Relationship Aetna Hpk [id number] DannyAlonzo Spouse Advance Directives Directive Response Recorded [...] Mg PO DAILY 09/01/08 07/19/11 Discontinued Fish Oil/[place]-3 Fatty Acids 2 Cap PO TWICE A [...] 1 Mg PO 12/31/11 02/28/12 Discontinued Fish Oil/[place]-3 Fatty Acids 2 Cap PO TWICE A [...] NEEDED 11/06/12 12/22/12 Discontinued Fluticasone Propionate 1 [place] NS NEEDED 11/06/12 Active Pramipexole Di-Hcl 0.5 [...] 02-24-14 AT 0930 AM FOR STAPLE REMOVAL. [phone] OUTPATIENT PHYSICAL THERAPY ON 02-15-14, 9AM AT [facility] [phone] Patient Instructions: LABWORK ON MONDAYS AND THURSDAYS (BEFORE 10AM) AT DR DARNELL'S OFFICE [phone] Wound/Incision Care: Tegaderm 1.Clear dressing is to [...] of your legs. 3.During office hours, call [phone] 4. After hours, please call [facility] at [phone], and have the seismometer operator page your Surgeon IN THE EVENT [...] Disposition 01 DISCHARGED HOME, SELF-CARE Instructions/Education Provided [facility] Orthopedic Dismissal Prescriptions [...] F (96.8 - 99.1) Temperature (Calculated Celsius) 36.90375 degrees C (36.0 - 37.3) Temperature Source [...] 01, 2014 8:11pm LAB TEST FORM REQUEST [id number] - Lipase December 26, 2013 8:01pm 41 [...] Has specimen been collected/obtained? Y Urine Specific [place] February 09, 2014 5:45am 1.025 - COMMENT [...] 2013 10:00am Name: MEGAN DELGADO Unit #: [id number] : [id number] Sex: F DISCHARGE SUMMARY Admit Date: 12/27/13 Report #: [id number] General Date Date DATE: 01/01/14 TIME: 16:13 [...] she could barely ambulate. She presented to [facility] ED, where lab [...] Home Meds Active Scripts Fluconazole (Diflucan)100 Mg [id number] Mg PO DAILY #5 TAB Prov:MARICARMEN PABLO DO 02/03/14 Azithromycin (Zithromax)250 Mg Yfcdfn281 Mg PO DAILY #3 TAB Prov:MARICARMEN PABLO DO 02/03/14 Reported Medications Cyclobenzaprine Hcl 10 Mg Dvxnla59 Mg PO 11/27/13 Oxycodone Hcl/Acetaminophen (Percocet 10-325 Mg Tablet)1 Tab Tablet1 Tab PO BID PRN 11/19/13 Omeprazole (Prilosec)40 Mg Capsule.dr40 Mg PO ACB 11/19/13 Pregabalin (Lyrica)75 Mg Dekzqxy57 Mg PO HS 11/19/13 Warfarin Sodium (Coumadin)5 Mg Tablet5 Mg PO DAILY 11/19/13 Fluoxetine Hcl (Prozac)40 Mg Zuhdvoh58 Mg PO DAILY 12/22/12 Multivitamins (Multivitamin)1 Tab Tablet1 Tab PO DAILY 12/22/12 Pramipexole Di-Hcl (Mirapex)0.5 Mg Tablet0.5 Mg PO HS 11/06/12 Fluticasone Propionate (Flonase)16 Gm [place].susp1 [place] NS PRN 11/06/12 Cholecalciferol (Vitamin D3) (Vitamin D3)2,000 Unit Capsule2,000 Unit PO DAILY 02/28/12 Levothyroxine Sodium (Synthroid)75 Mcg Dyejfv25 Mcg PO DAILY 02/28/12 Divalproex Sodium (Depakote)250 Mg Tablet.dr250 Mg PO BID 07/19/11 Topiramate (Topamax)100 Mg Kcccrk929 Mg PO BID PRN 06/04/08 Discharge Disposition stable MARICARMEN PABLO DO January 01, 2014 16:14 Procedures Procedure Status Date Provider(s) REPAIR OF HAMMERTOE completed 11/27/13 ANIVAL PINA DPTeetee Total knee revision completed 02/08/14 AZIZA ARDON MD Encounters Encounter Location Date/Time Discharged Inpatient [facility] 02/08/14 8:24am Registered Clinic [facility] 02/01/14 12:59pm Registered Clinic [facility] 01/21/14 7:39am Discharged Inpatient [facility] 12/27/13 11:32am Recent Diagnosis Painful total knee replacement
[2016-11-10 15:41] LABS: BASOPHILS # (AUTO) 0.1 T/MM3 (0-0.2); BASOPHILS % (AUTO) 0.8 % (0-2); EOSINOPHILS # (AUTO) 0.2 T/MM3 (0-0.5); EOSINOPHILS % (AUTO) 2.2 % (0-4); HCT - HEMATOCRIT 39.6 % (36-46); HGB - HEMOGLOBIN 12.8 GM/DL (12-16); IMMATURE GRANULOCYTE # (AUTO) 0.02 T/MM3 (0.00-0.03); IMMATURE GRANULOCYTE % (AUTO) 0.2 % (0.0-0.5); LYMPHOCYTES % (AUTO) 23.7 % (23-45); MEAN CORPUSCULAR HGB 30.3 UUG (26-34); MEAN CORPUSCULAR HGB CONC(MCHC 32.3 GM/DL (31-37); MEAN CORPUSCULAR VOLUME 93.6 UM3 (80-100); MEAN PLATELET VOLUME 8.4 UM3 (9.4-12.4); MONOCYTES # (AUTO) 0.6 T/MM3 (0-0.8); MONOCYTES % (AUTO) 6.4 % (0-9.0); NEUTROPHILS #(AUTO)-ABSOLUTE 5.7 T/MM3 (1.8-7.7); NEUTROPHILS % (AUTO) 66.7 % (33-66); RED BLOOD COUNT 4.23 M/MM3 (4.00-5.20); WBC - WHITE BLOOD COUNT 8.6 T/MM3 (4.5-11.0)
[2016-11-10 16:01] LABS: ALBUMIN/GLOBULIN RATIO 1.3 RATIO (1.1-2.2); ALKALINE PHOSPHATASE 140 U/L (38-126); ALT (SGPT) 34 U/L (9-52); ANION GAP 11 MEQ/L (5-15); AST (SGOT) 28 U/L (14-36); BUN/CREATININE RATIO 24 RATIO (6-26); CALCIUM 9.4 MG/DL (8.4-10.2); CHLORIDE 104 MEQ/L (98-107); CO2 - CARBON DIOXIDE 30 MEQ/L (22-30); CREATININE 1.1 MG/DL (0.7-1.2); GLOMERULAR FILTRATION RATE 51; GLUCOSE 83 MG/DL (65-110); SODIUM 145 MEQ/L (134-144)
[2016-11-10] MEDS ORDERED: LIDOCAINE 1%/EPI 1:100,000 20ml MDV SQ ONE (16:15)
[2016-11-10] MEDS ORDERED: HYDR-4246 PO (16:39)
[2016-11-10] MEDS ORDERED: ONDA4TAB7 PO (16:39)
[2016-11-10] MEDS ORDERED: TETANUS,DIPHTH,a PERTUS (Tdap) 0.5 ML VIAL IM ONE (17:00)
[2016-11-10 17:02] VITALS: BP 129/84; PULSE 80; RESP 16; TEMP 97.4; O2SAT 98
--- NOTE | 2016-11-10 17:02 | NUR ---
DISMISSAL INSTRUCTIONS REVIEWED. SHE VERBALIZES UNDERSTANDING. DISCHARGED AMB W SPOUSE
--- NOTE | 2016-11-11 09:26 | DI ---
Indication: ITS.REASON: fall, with injury to orbit PROCEDURE: CT HEAD W/O CONTRAST: Encounter: Initial Comparison: September 12, 2015 Technique: Axial CT images through the head were performed without contrast. Iterative Reconstruction dose reducing technique was utilized. FINDINGS: The ventricles are of normal size, shape, and configuration for the patient's age. There is no evidence of acute intracranial hemorrhage, midline displacement, or mass effect. There are scattered areas of low attenuation in the white matter which most likely represent changes of chronic microvascular ischemia. The CT attenuation of the brain parenchyma is otherwise normal within the cerebellum, brain stem, and cerebral hemispheres. The tympanic cavities and mastoid air cells are free of appreciable disease. There are no definite fractures of the skull base, calvarium, or visualized portion of the midface. Left periorbital scalp swelling. IMPRESSION: No CT evidence of acute traumatic intracranial injury. There is a preliminary report by [facility] radiologic. .
== END 2016-11-10 17:02 | disposition home or self-care (01) ==
LOC: ED 14:34
DX: S01.112A Laceration without foreign body of left eyelid and periocular area, initial encounter (principal); S01.511A Laceration without foreign body of lip, initial encounter; W01.0XXA Fall on same level from slipping, tripping and stumbling without subsequent striking against object, initial encounter; Y93.01 Activity, walking, marching and hiking; Y92.015 Private garage of single-family (private) house as the place of occurrence of the external cause; Y99.8 Other external cause status
CPT/HCPCS: 12011; 70450; 80053; 85025; 90471; 90715; 96374; 96375; 99284; J1170; J2405

== ENCOUNTER → 2016-11-20 | Outpatient (CLI) | payer BC, MEDICARE ==
[~2016-11-20] MED LIST changes: +AMIT25TA9 PO; -AMIT50TA3 PO; +CALC600T20 PO; -CETI-115 PO; -CYCL-375 PO; +DICL100G5 TOP; -FERR324T PO; -FLUT15.88 NS; +HYDR-4246 PO; +LACT1CAP80 PO; -METF500T4 PO; -METO50TA5 PO; +ONDA4TAB7 PO; -PHEN-742 PO; -POTA-12 PO
[2016-11-20 13:09] LABS: BASOPHILS,BODY FLUID 0 %; BODY FLUID TYPE SYNOVIAL FLUID; EOSINOPHILS,BODY FLUID 0 %; LYMPHOCYTES,BODY FLUID 22 %; MONOCYTES,BODY FLUID 0 %; NEUTROPHILS,BODY FLUID 0 %
== END ==
LOC: LABN 10:57
PROVIDERS: ATTEND Orthopaedic Surgery
DX: M25.562 Pain in left knee (principal)
CPT/HCPCS: 87070; 89051